=== PATIENT | female | born 1975 | race Caucasian/White ===

== ENCOUNTER → 2017-10-26 11:58 | Outpatient (CLI) | payer BC, SELFPAY ==
[2017-10-26 12:03] LABS: Mucous, Urine 0 SEEN /hpf (<or=2+); Red Blood Cells-Urine 0 SEEN /hpf (0-5)
[2017-10-26 14:07] LABS: Absolute Lymphocyte Count 2.14 X10^3/ul (0.83-4.51); Absolute Neutrophil Count 3.7 X10^3/uL (2.0-7.7); Basophil# 0.01 X10^3/uL; Basophil% 0.2 % (0-1); Eosinophils% 1.5 % (0-5); Hematocrit 41.5 % (37-47); Hemoglobin 14.3 g/dl (12.0-15.0); Lymphocyte # 2.14 X10^3/ul (4.0); Lymphocyte % 33.1 % (19-41); Mean Corp Hgb Conc 34.5 g/gl (32-36); Mean Corpuscular Hgb 30.8 pg (27.0-32.0); Mean Corpuscular Volume 89.4 fL (81-99); Mean Platelet Vol. 13.3 fl (6.2-12.0); Monocyte# 0.47 X10^3/uL; Monocyte% 7.3 % (0-10); Neutrophil # 3.73 X10^3/uL (2.7-7.7); Neutrophil % 57.7 % (47-70); Platelet Count 176 K/mm3 (150-450); RBC Distribution Width CV 12.3 % (11.6-14.6); RBC Distribution Width SD 40.1 fl (35.1-43.9); Red Blood Count 4.64 M/mm3 (4.2-5.4); White Blood Count 6.5 K/mm3 (4.4-11.0)
[2017-10-26 14:18] LABS: POSITIVE COUNT NO; POSITIVE DIFFERENTIAL NO; POSITIVE MORPHOLOGY NO
[2017-10-26 14:23] LABS: Hemoglobin A1c 8.1 % (4.2-6.3)
[2017-10-26 14:29] LABS: Color, Urine Yellow (Yellow); Glucose, Dipstick 100 mg/dl (Normal); Ketone-Dipstick 15 mg/dl (Negative); Leukocyte Esterase-Dipstick 25 /ul (Negative); Nitrite-Dipstick Negative (Negative); Occult Blood-Urine Negative /ul (Negative); Protein-Dipstick 30 mg/dl (Negative); Urine Bilirubin Dipstick Negative (Negative); Urine Clarity Sl. Cloudy (Clear); Urine Urobilinogen Normal (Normal)
[2017-10-26 14:33] LABS: Vitamin D,25 Hydroxy 38.8 ng/mL (29.95-100.01)
[2017-10-26 14:40] LABS: AST(SGOT) 45 U/L (15-37); Alanine Aminotransfer ALT/SGPT 44 U/L (13-56); Albumin, Serum 3.9 g/dL (3.2-5.0); Alkaline Phosphatase 56 U/L (45-117); Anion Gap 9 (5-15); BUN 13 mg/dL (7-18); BUN/Creat Ratio 15.3 RATIO (10-20); Calcium,Total 8.8 mg/dL (8.5-10.1); Chloride 103 mmol/L (98-107); Cholesterol 177 mg/dL (200); Creatinine, Serum 0.85 mg/dL (0.55-1.02); EST Glomerular Filtration Rate 78 mL/min (>60); Est Glom Filt Rate - Afr Amer 95 mL/min (>60); Glucose 150 mg/dL (74-106); High Density Lipoprotein 33 mg/dL; Potassium 4.1 mmol/L (3.5-5.1); Protein, Total 7.9 g/dL (6.4-8.2); Sodium Level 136 mmol/L (136-145); Thyroid Stim Hormone (TSH) 1.03 uIU/mL (0.358-3.74); Triglycerides 195 mg/dL; Very Low Density Lipoprotein 39 mg/dL (5-40)
[2017-10-26 14:44] LABS: Bacteria 1+ /hpf (None Seen); Squamous Epithelial Cells - UA 0-5 SEEN /hpf (5-10); White Blood Cells 0-5 SEEN /hpf (0-5)
[2017-10-26 15:01] LABS: Microalbumin:Creatinine Ratio 53.2 mg/g CRE (<30 mg/g CRE)
== END ==
LOC: MFPLAB 12:00
PROVIDERS: Family Provider Family Medicine; PCP Family Medicine; Visit Provider Family Medicine
DX: E11.9 Type 2 diabetes mellitus without complications (principal); E55.9 Vitamin D deficiency, unspecified; E66.01 Morbid (severe) obesity due to excess calories
CPT/HCPCS: 36415; 80053; 80061; 81001; 82043; 82306; 82570; 83036; 84443; 85025

== ENCOUNTER → 2018-02-28 15:47 | Outpatient (CLI) | payer BC, SELFPAY ==
[2018-02-28 17:46] LABS: Hemoglobin A1c 8.2 % (4.2-6.3)
[2018-02-28 17:47] LABS: Vitamin D,25 Hydroxy 35.1 ng/mL (29.95-100.01)
[2018-02-28 18:03] LABS: ALB/GLOB Ratio 0.9 RATIO (0.9-2.4); AST(SGOT) 39 U/L (15-37); Alanine Aminotransfer ALT/SGPT 42 U/L (13-56); Albumin, Serum 3.9 g/dL (3.2-5.0); Alkaline Phosphatase 70 U/L (45-117); Anion Gap 9 (5-15); BUN 14 mg/dL (7-18); BUN/Creat Ratio 18.9 RATIO (10-20); Calcium,Total 8.9 mg/dL (8.5-10.1); Chloride 102 mmol/L (98-107); Cholesterol 183 mg/dL (200); Creatinine, Serum 0.74 mg/dL (0.55-1.02); EST Glomerular Filtration Rate 91 mL/min (>60); Est Glom Filt Rate - Afr Amer 110 mL/min (>60); Globulin 4.2 g/dL (2.2-4.2); Glucose 185 mg/dL (74-106); High Density Lipoprotein 31 mg/dL; Potassium 3.9 mmol/L (3.5-5.1); Protein, Total 8.1 g/dL (6.4-8.2); Sodium Level 135 mmol/L (136-145); Triglycerides 209 mg/dL; Very Low Density Lipoprotein 42 mg/dL (5-40)
[2018-02-28 18:44] LABS: Microalbumin:Creatinine Ratio 56.1 mg/g CRE (<30 mg/g CRE)
== END ==
PROVIDERS: Family Provider Family Medicine; PCP Family Medicine; Visit Provider Family Medicine
DX: E55.9 Vitamin D deficiency, unspecified (principal); E11.9 Type 2 diabetes mellitus without complications
CPT/HCPCS: 36415; 80053; 80061; 82043; 82306; 82570; 83036

== ENCOUNTER → 2018-05-01 15:53 | Outpatient (CLI) | payer BC, SELFPAY ==
[2018-05-01 15:58] LABS: Mucous, Urine 0 SEEN /hpf (<or=2+); Red Blood Cells-Urine 0 SEEN /hpf (0-5); Squamous Epithelial Cells - UA 0 SEEN /hpf (5-10)
[2018-05-01 18:01] LABS: Absolute Lymphocyte Count 2.27 X10^3/ul (0.83-4.51); Absolute Neutrophil Count 4.5 X10^3/uL (2.0-7.7); Basophil# 0.02 X10^3/uL; Basophil% 0.3 % (0-1); Eosinophil# 0.13 X10^3/uL; Eosinophils% 1.7 % (0-5); Hematocrit 41.4 % (37-47); Hemoglobin 14.2 g/dl (12.0-15.0); Lymphocyte # 2.27 X10^3/ul (4.0); Lymphocyte % 30.2 % (19-41); Mean Corp Hgb Conc 34.3 g/gl (32-36); Mean Corpuscular Hgb 30.6 pg (27.0-32.0); Mean Corpuscular Volume 89.2 fL (81-99); Mean Platelet Vol. 12.7 fl (6.2-12.0); Monocyte# 0.61 X10^3/uL; Monocyte% 8.1 % (0-10); Neutrophil # 4.48 X10^3/uL (2.7-7.7); Neutrophil % 59.6 % (47-70); Platelet Count 198 K/mm3 (150-450); RBC Distribution Width CV 12.6 % (11.6-14.6); RBC Distribution Width SD 40.5 fl (35.1-43.9); Red Blood Count 4.64 M/mm3 (4.2-5.4); White Blood Count 7.5 K/mm3 (4.4-11.0)
[2018-05-01 18:13] LABS: Vitamin D,25 Hydroxy 28.9 ng/mL (29.95-100.01)
[2018-05-01 18:18] LABS: Color, Urine Yellow (Yellow); Glucose, Dipstick 1000 mg/dl (Normal); Ketone-Dipstick Negative (Negative); Leukocyte Esterase-Dipstick Negative /ul (Negative); Nitrite-Dipstick Negative (Negative); Occult Blood-Urine Negative /ul (Negative); Protein-Dipstick 15 mg/dl (Negative); Specific Gravity, Urine 1.025 (1.002-1.030); Urine Bilirubin Dipstick Negative (Negative); Urine Clarity Clear (Clear); Urine Urobilinogen Normal (Normal)
[2018-05-01 18:18] LABS: POSITIVE COUNT NO; POSITIVE DIFFERENTIAL NO; POSITIVE MORPHOLOGY NO
[2018-05-01 18:19] LABS: ALB/GLOB Ratio 0.9 RATIO (0.9-2.4); AST(SGOT) 30 U/L (15-37); Alanine Aminotransfer ALT/SGPT 33 U/L (13-56); Albumin, Serum 3.7 g/dL (3.2-5.0); Alkaline Phosphatase 71 U/L (45-117); Anion Gap 9 (5-15); BUN 15 mg/dL (7-18); BUN/Creat Ratio 20.1 RATIO (10-20); Chloride 102 mmol/L (98-107); Cholesterol 129 mg/dL (200); Creatinine, Serum 0.74 mg/dL (0.55-1.02); EST Glomerular Filtration Rate 91 mL/min (>60); Est Glom Filt Rate - Afr Amer 110 mL/min (>60); Globulin 4.1 g/dL (2.2-4.2); Glucose 182 mg/dL (74-106); High Density Lipoprotein 30 mg/dL; Potassium 4.2 mmol/L (3.5-5.1); Protein, Total 7.8 g/dL (6.4-8.2); Sodium Level 136 mmol/L (136-145); Thyroid Stim Hormone (TSH) 1.19 uIU/mL (0.358-3.74); Triglycerides 192 mg/dL; Very Low Density Lipoprotein 38 mg/dL (5-40)
[2018-05-01 18:23] LABS: Hemoglobin A1c 9.9 % (4.2-6.3)
[2018-05-01 18:29] LABS: Microalbumin:Creatinine Ratio 109.8 mg/g CRE (<30 mg/g CRE)
[2018-05-01 18:54] LABS: Bacteria RARE /hpf (None Seen); White Blood Cells 0-5 SEEN /hpf (0-5)
--- OUTSIDE RECORDS SUMMARY | 2018-08-03 08:42 | XMS RPT_ITS ---
:1975 External Reference #:[id number] Author Organization [facility] Care Team Providers Name Role Phone Farrukh Prajapati Attending Unavailable Farrukh Prajapati Primary Care Unavailable Farrukh Prajapati Attending Unavailable Farrukh Prajapati Referring Unavailable Farrukh Prajapati Primary Care Unavailable Farrukh Prajapati Attending Unavailable Farrukh Prajapati Referring Unavailable Farrukh Prajapati Primary Care Unavailable Farrukh Prajapati Attending Unavailable Farrukh Prajapati Primary Care Unavailable Farrukh Prajapati Attending Unavailable Farrukh Prajapati Primary Care Unavailable Farrukh Prajapati Attending Unavailable Farrukh Prajapati Primary Care Unavailable PROBLEMS PROBLEMS DATE TYPE CONDITION / CODE ATTENDING STATUS SOURCE 05/31/2018 Unknown M25.532 - Pain in Farrukh Prajapati left wrist / [facility] M25.532(ICD-10) Hospital Repository 03/03/2018 Unknown E55.9 - Vitamin D Farrukh Prajapati Active [place] deficiency, [facility] unspecified / Hospital E55.9(ICD-10) Repository PROCEDURES PROCEDURES No Procedure Records FoundRESULTS RESULTS WRIST MIN 3 VIEWS Observed: 05/31/2018 Status: F Source: [place] 9:43 AM [facility] REPOSITORY [facility] Imaging Services [address] [place] [address] Wrist min 3 Views MR#: [id number] Acct: [id number] Name: RAVI RAMIREZ Zach Rep #: [id number] : 1975 F 43 From: Sarthak Forman DO PCP: Farrukh Prajapati MD Status: REG CLI Study: Wrist min 3 Views Date of Exam: 05/31/18 Exam# [id number] Ordering Dr: Farrukh Prajapati MD STUDY: X-RAY - LEFT WRIST REASON FOR EXAM: Female, 43 years old. Pain for 1.5 months after a beam fell on the arm. TECHNIQUE: 4 view(s) of the wrist were obtained. COMPARISON: None. FINDINGS: Normal visualized distal radius and ulna. Normal radiocarpal articulation. Normal distal radioulnar articulation. Normal carpal bones. Normal carpal articulations. Normal carpometacarpal articulation of the thumb. Normal second through fifth carpometacarpal articulations. Normal visualized metacarpal bones. The soft tissue structures are unremarkable. RAD/Wrist min 3 Views IMPRESSION: Normal x-ray examination of the wrist. Electronically Signed: Sarthak Forman DO at 23:24 EST Tel [phone], Service support , CC: Farrukh Prajapati MD Insurance Claims Assistant: Signed HEMOGLOBIN A1C Collected: 05/26/2018 Status: F Source: [place] 11:00 AM [facility] [place] TYPE CODE TESTS RESULT OUT OF RANGE REFERENCE UNITS LAB L501.9985 4.2-6.3 % High HGB A1C 9.8 Performed By: #### L501.9985 #### [facility] [address] [place], [place], [id number] COMPREHENSIVE METABOLIC Collected: 05/26/2018 Status: F [facility] AM [facility] TYPE CODE TESTS RESULT OUT OF RANGE REFERENCE UNITS LAB L501.0100 74-106 mg/dL High GLU 173 Result Comment: Fasting Glucose result greater than or equal to 126 mg/dL suggests DIABETES MELLITUS per A.D.A. criteria. Please note revised GLUCOSE reference range effective 2017. LAB L501.1000 7-18 mg/dL Normal BUN 11 LAB L501.1100 0.55-1.02 mg/dL Normal CREAT,SERUM 0.62 Result Comment: The validity of the calculated GFR AND GFRAA in patients over 70 years has not been determined. Clinical correlation is essential. LAB L501.1110 >60 mL/min Normal EST GFR 112 Result Comment: Non- GFR Calc LAB L501.1115 >60 mL/min Normal EST GFR - AA 136 Result Comment: GFR Calc LAB L501.1300 10-20 RATIO Normal BUN/CRE 17.7 LAB L501.1500 6.4-8.2 g/dL T Normal PROT 7.6 LAB L501.1800 3.2-5.0 g/dL Normal ALB 4.0 LAB L501.1950 2.2-4.2 g/dL Normal GLOB 3.6 LAB L501.2000 0.9-2.4 RATIO Normal A/G 1.1 LAB L501.2200 8.5-10.1 mg/dL CA Normal 8.8 LAB L501.4100 15-37 U/L High AST 44 LAB L501.4305 45-117 U/L Normal ALK P 68 LAB L501.4405 13-56 U/L Normal ALT 42 LAB L501.4600 0.20-1.00 mg/dL T Normal BILI 0.50 LAB L501.5300 136-145 mmol/L NA Normal 136 LAB L501.5600 3.5-5.1 mmol/L K Normal 4.3 LAB L501.5900 98-107 mmol/L CL Normal 104 LAB L501.6100 21.0-32.0 mmol/L Normal CO2 23.0 LAB L501.6200 5-15 Normal GAP 9 Performed By: #### L500.4050, L500.4100 #### [facility] [address] [place], [place], [id number] LIPID PROFILE Collected: 05/26/2018 Status: F Source: [place] 11:00 AM [facility] [place] TYPE CODE TESTS RESULT OUT OF RANGE REFERENCE UNITS LAB L501.4900 200 mg/dL Normal CHOL 150 Result Comment: <200 mg/dL Desirable 200-240 mg/dL Borderline >240 mg/dL High Risk LAB L501.5000 mg/dL Normal TRIG 159 Result Comment: The drugs N-Acetylcysteine and Metamizole may falsely depress this assay. Serum Triglycerides Reference Interval Normal <150 mg/dL Borderline high 150 - 199 mg/dL High 200 - 499 mg/dL Very High > or = 500 mg/dL LAB L501.6400 mg/dL Low HDL 34 Result Comment: The drugs N-Acetylcysteine and Metamizole may falsely depress this assay. Reference Range HDL <40 mg/dL Low HDL Cholesterol HDL >or= 60 mg/dL High HDL Cholesterol LAB L501.6500 0-130 mg/dL Normal LDL 84 LAB L501.6600 5-40 mg/dL Normal VLDL 32 Performed By: #### L500.4050, L500.4100 #### [facility] [address] [place], [place], [id number] MICROALB:CREAT Collected: 05/26/2018 Status: F Source: [place] RATIO,RANDOM UR 11:00 AM [facility] [place] TYPE CODE TESTS RESULT OUT OF RANGE REFERENCE UNITS LAB L501.1200 NO RANGE EST. mg/dL Normal UR CREAT 102.00 LAB L502.0500 NO RANGE EST. mg/L Normal 76.5 MICROALBUMIN ,UR LAB L502.0600 <30 mg/g CRE mg/g CRE High 75.0 MALB:CREAT Performed By: #### L502.0250 #### [facility] [address] [place], [address] URINALYSIS, COMPLETE Collected: 05/01/2018 Status: F Source: [place] 3:56 PM [facility] [place] Order Comment: How was Urine Obtained? CLEAN CATCH TYPE CODE TESTS RESULT OUT OF RANGE REFERENCE UNITS LAB L400.3000 Yellow COLOR Normal Yellow LAB L400.3050 Clear Normal CLARITY Clear LAB L400.3200 Normal mg/dl High GLUCOSE, UR 1000 LAB L400.3300 Negative mg/dL Normal BILIRUBIN URINE Negative LAB L400.3400 Negative mg/dl Normal KETONE UR Negative LAB L400.3465 1.002-1.030 Normal SP.GR. DIPSTX 1.025 LAB L400.3550 5.0 - 8.0 pH UR Normal 6.0 LAB L400.3600 Negative mg/dl High PROT 15 DIPSTX LAB L400.3700 Normal mg/dl Normal UROBILI Normal LAB L400.3750 Negative Normal NITRITE UR Negative LAB L400.3780 Negative /ul Normal OCCULT BLOOD-UR Negative LAB L400.3800 Negative /ul LEUK Normal ESTERASE Negative LAB L400.4050 0-5 /hpf WBC Normal 0-5 SEEN LAB L400.4100 0-5 /hpf 0 Normal RBC-UA SEEN LAB L400.4150 5-10 /hpf SQUAM 0 Normal EPI SEEN LAB L400.4300 None Seen /hpf Normal BACTERIA RARE LAB L400.4350 <or=2+ /hpf 0 Normal MUCUS, URINE SEEN Performed By: #### L400.0001 #### [facility] [address] [place], [address] VITAMIN D,25 HYDROXY Collected: 05/01/2018 Status: F Source: [place] 3:55 PM [facility] Order Comment: Order Date: 10/27/17 Order Info: [id number] - VITD25 TYPE CODE TESTS RESULT OUT OF REFERENCE UNITS RANGE LAB L506.1000 29.95-100.01 ng/mL Low Vitamin D 28.9 25-OH Result Comment: Vitamin D 25(OH) Status Range Deficiency <20 ng/mL (50nmol/L) Insuffciency 20 - 30 ng/mL (50 - 75 nmol/L) Sufficiency 30 - 100 ng/mL (75 - 250 nmol/L) Toxicity >100 ng/mL (>250 nmol/L) Performed By: #### L506.1000, L100.0100, L500.4050, L500.4100, L501.9520, L501.9985, L502.0250 #### [facility] [address] [place], [place], [address] CBC W/DIFF, AUTOMATED Collected: 05/01/2018 Status: F Source: [place] 3:55 PM [facility] Order Comment: Order Date: 10/27/17 Order Info: [id number] - CBCD TYPE CODE TESTS RESULT OUT OF RANGE REFERENCE UNITS LAB L100.1000 4.4-11.0 K/mm3 Normal WBC 7.5 LAB L100.1200 4.2-5.4 M/mm3 Normal RBC 4.64 LAB L100.1300 12.0-15.0 g/dl Normal HGB 14.2 LAB L100.1400 37-47 % Normal HCT 41.4 LAB L100.1500 81-99 fL Normal MCV 89.2 LAB L100.1600 27.0-32.0 pg Normal MCH 30.6 LAB L100.1700 32-36 g/gl Normal MCHC 34.3 LAB L100.1810 11.6-14.6 % Normal RDW CV 12.6 LAB L100.1820 35.1-43.9 fl Normal RDW SD 40.5 LAB L100.1900 150-450 K/mm3 Normal PLT 198 LAB L100.2000 6.2-12.0 fl High MPV 12.7 LAB L100.2100 47-70 % Normal NEUT% 59.6 LAB L100.2200 19-41 % Normal LY% 30.2 LAB L100.2300 0-10 % Normal MONO% 8.1 LAB L100.2400 0-5 % Normal EO% 1.7 LAB L100.2500 0-1 % Normal BASO% 0.3 LAB L100.2550 0.0-0.9 % Normal IM GRAN % 0.100 Result Comment: IG% - Immature Granulocytes (promyelocytes, myelocytes and metamyelocytes) > 1% indicates that a LEFT SHIFT is Present. LAB L100.2620 2.0-7.7 X10 3/uL Normal Absolute Neut 4.5 LAB L100.2720 0.83-4.51 X10 3/ul Normal Absolute Lymph 2.27 Performed By: #### L506.1000, L100.0100, L500.4050, L500.4100, L501.9520, L501.9985, L502.0250 #### [facility] [address] [place], [address] COMPREHENSIVE METABOLIC Collected: 05/01/2018 Status: F Source: [facility] 3:55 PM [facility] Order Comment: Order Date: 10/27/17 Order Info: [id number] - CMP Order Info: [id number] - LIPID Order Info: [id number] - TSH TYPE CODE TESTS RESULT OUT OF RANGE REFERENCE UNITS LAB L501.0100 74-106 mg/dL High GLU 182 Result Comment: Fasting Glucose result greater than or equal to 126 mg/dL suggests DIABETES MELLITUS per A.D.A. criteria. Please note revised GLUCOSE reference range effective 2017. LAB L501.1000 7-18 mg/dL Normal BUN 15 LAB L501.1100 0.55-1.02 mg/dL Normal CREAT,SERUM 0.74 Result Comment: The validity of the calculated GFR AND GFRAA in patients over 70 years has not been determined. Clinical correlation is essential. LAB L501.1110 >60 mL/min Normal EST GFR 91 Result Comment: Non- GFR Calc LAB L501.1115 >60 mL/min Normal EST GFR - AA 110 Result Comment: GFR Calc LAB L501.1300 10-20 RATIO High BUN/CRE 20.1 LAB L501.1500 6.4-8.2 g/dL T Normal PROT 7.8 LAB L501.1800 3.2-5.0 g/dL Normal ALB 3.7 LAB L501.1950 2.2-4.2 g/dL Normal GLOB 4.1 LAB L501.2000 0.9-2.4 RATIO Normal A/G 0.9 LAB L501.2200 8.5-10.1 mg/dL CA Normal 9.0 LAB L501.4100 15-37 U/L Normal AST 30 LAB L501.4305 45-117 U/L Normal ALK P 71 LAB L501.4405 13-56 U/L Normal ALT 33 LAB L501.4600 0.20-1.00 mg/dL T Normal BILI 0.40 LAB L501.5300 136-145 mmol/L NA Normal 136 LAB L501.5600 3.5-5.1 mmol/L K Normal 4.2 LAB L501.5900 98-107 mmol/L CL Normal 102 LAB L501.6100 21.0-32.0 mmol/L Normal CO2 25.0 LAB L501.6200 5-15 Normal GAP 9 Performed By: #### L506.1000, L100.0100, L500.4050, L500.4100, L501.9520, L501.9985, L502.0250 #### [facility] [address] [place], [address] LIPID PROFILE Collected: 05/01/2018 Status: F Source: [place] 3:55 PM [facility] Order Comment: Order Date: 10/27/17 Order Info: [id number] - CMP Order Info: [id number] - LIPID Order Info: [id number] - TSH TYPE CODE TESTS RESULT OUT OF RANGE REFERENCE UNITS LAB L501.4900 200 mg/dL Normal CHOL 129 Result Comment: <200 mg/dL Desirable 200-240 mg/dL Borderline >240 mg/dL High Risk LAB L501.5000 mg/dL Normal TRIG 192 Result Comment: The drugs N-Acetylcysteine and Metamizole may falsely depress this assay. Serum Triglycerides Reference Interval Normal <150 mg/dL Borderline high 150 - 199 mg/dL High 200 - 499 mg/dL Very High > or = 500 mg/dL LAB L501.6400 mg/dL Low HDL 30 Result Comment: The drugs N-Acetylcysteine and Metamizole may falsely depress this assay. Reference Range HDL <40 mg/dL Low HDL Cholesterol HDL >or= 60 mg/dL High HDL Cholesterol LAB L501.6500 0-130 mg/dL Normal LDL 61 LAB L501.6600 5-40 mg/dL Normal VLDL 38 Performed By: #### L506.1000, L100.0100, L500.4050, L500.4100, L501.9520, L501.9985, L502.0250 #### [facility] [address] [place], [place], [id number] THYROID STIM HORMONE Collected: 05/01/2018 Status: F Source: [place] (TSH) 3:55 PM [facility] Order Comment: Order Date: 10/27/17 Order Info: [id number] - CMP Order Info: [id number] - LIPID Order Info: [id number] - TSH TYPE CODE TESTS RESULT OUT OF RANGE REFERENCE UNITS LAB L501.9520 0.358-3.74 uIU/mL Normal TSH 1.19 Performed By: #### L506.1000, L100.0100, L500.4050, L500.4100, L501.9520, L501.9985, L502.0250 #### [facility] [address] [place], [address] HEMOGLOBIN A1C Collected: 05/01/2018 Status: F Source: [place] 3:55 PM [facility] Order Comment: Order Date: 10/27/17 Order Info: [id number] - A1C TYPE CODE TESTS RESULT OUT OF RANGE REFERENCE UNITS LAB L501.9985 4.2-6.3 % High HGB A1C 9.9 Performed By: #### L506.1000, L100.0100, L500.4050, L500.4100, L501.9520, L501.9985, L502.0250 #### [facility] [address] [place], [place], [id number] MICROALB:CREAT Collected: 05/01/2018 Status: F Source: [place] RATIO,RANDOM UR 3:55 PM [facility] Order Comment: Order Date: 10/27/17 Order Info: [id number] - MIACRE TYPE CODE TESTS RESULT OUT OF RANGE REFERENCE UNITS LAB L501.1200 NO RANGE EST. mg/dL Normal UR CREAT 102.00 LAB L502.0500 NO RANGE EST. mg/L Normal 112.0 MICROALBUMIN ,UR LAB L502.0600 <30 mg/g CRE mg/g CRE High 109.8 MALB:CREAT Performed By: #### L506.1000, L100.0100, L500.4050, L500.4100, L501.9520, L501.9985, L502.0250 #### [facility] [address] [place], [address] HEMOGLOBIN A1C Collected: 02/28/2018 Status: F Source: [place] 3:48 PM [facility] TYPE CODE TESTS RESULT OUT OF RANGE REFERENCE UNITS LAB L501.9985 4.2-6.3 % High HGB A1C 8.2 Performed By: #### L501.9985 #### [facility] [address] [place], [address] VITAMIN D,25 HYDROXY Collected: 02/28/2018 Status: F Source: [place] 3:48 PM [facility] TYPE CODE TESTS RESULT OUT OF RANGE REFERENCE UNITS LAB L506.1000 29.95-100.01 ng/mL Normal Vitamin D 35.1 25-OH Result Comment: Vitamin D 25(OH) Status Range Deficiency <20 ng/mL (50nmol/L) Insuffciency 20 - 30 ng/mL (50 - 75 nmol/L) Sufficiency 30 - 100 ng/mL (75 - 250 nmol/L) Toxicity >100 ng/mL (>250 nmol/L) Performed By: #### L506.1000 #### [facility] [address] [place], [address] COMPREHENSIVE METABOLIC Collected: 02/28/2018 Status: F Source: [place] [facility] 3:48 PM [facility] [place] TYPE CODE TESTS RESULT OUT OF RANGE REFERENCE UNITS LAB L501.0100 74-106 mg/dL High GLU 185 Result Comment: Fasting Glucose result greater than or equal to 126 mg/dL suggests DIABETES MELLITUS per A.D.A. criteria. Please note revised GLUCOSE reference range effective 2017. LAB L501.1000 7-18 mg/dL Normal BUN 14 LAB L501.1100 0.55-1.02 mg/dL Normal CREAT,SERUM 0.74 Result Comment: The validity of the calculated GFR AND GFRAA in patients over 70 years has not been determined. Clinical correlation is essential. LAB L501.1110 >60 mL/min Normal EST GFR 91 Result Comment: Non- GFR Calc LAB L501.1115 >60 mL/min Normal EST GFR - AA 110 Result Comment: GFR Calc LAB L501.1300 10-20 RATIO Normal BUN/CRE 18.9 LAB L501.1500 6.4-8.2 g/dL T Normal PROT 8.1 LAB L501.1800 3.2-5.0 g/dL Normal ALB 3.9 LAB L501.1950 2.2-4.2 g/dL Normal GLOB 4.2 LAB L501.2000 0.9-2.4 RATIO Normal A/G 0.9 LAB L501.2200 8.5-10.1 mg/dL CA Normal 8.9 LAB L501.4100 15-37 U/L High AST 39 LAB L501.4305 45-117 U/L Normal ALK P 70 LAB L501.4405 13-56 U/L Normal ALT 42 LAB L501.4600 0.20-1.00 mg/dL T Normal BILI 0.30 LAB L501.5300 136-145 mmol/L Low NA 135 LAB L501.5600 3.5-5.1 mmol/L K Normal 3.9 LAB L501.5900 98-107 mmol/L CL Normal 102 LAB L501.6100 21.0-32.0 mmol/L Normal CO2 24.0 LAB L501.6200 5-15 Normal GAP 9 Performed By: #### L500.4050, L500.4100 #### [facility] [address] [place], [place], [id number] LIPID PROFILE Collected: 02/28/2018 Status: F Source: [place] 3:48 PM [facility] TYPE CODE TESTS RESULT OUT OF RANGE REFERENCE UNITS LAB L501.4900 200 mg/dL Normal CHOL 183 Result Comment: <200 mg/dL Desirable 200-240 mg/dL Borderline >240 mg/dL High Risk LAB L501.5000 mg/dL High TRIG 209 Result Comment: The drugs N-Acetylcysteine and Metamizole may falsely depress this assay. Serum Triglycerides Reference Interval Normal <150 mg/dL Borderline high 150 - 199 mg/dL High 200 - 499 mg/dL Very High > or = 500 mg/dL LAB L501.6400 mg/dL Low HDL 31 Result Comment: The drugs N-Acetylcysteine and Metamizole may falsely depress this assay. Reference Range HDL <40 mg/dL Low HDL Cholesterol HDL >or= 60 mg/dL High HDL Cholesterol LAB L501.6500 0-130 mg/dL Normal LDL 110 LAB L501.6600 5-40 mg/dL High VLDL 42 Performed By: #### L500.4050, L500.4100 #### [facility] [address] [facility] [place], [address] MICROALB:CREAT Collected: 02/28/2018 Status: F Source: [place] RATIO,RANDOM UR 3:48 PM [facility] TYPE CODE TESTS RESULT OUT OF RANGE REFERENCE UNITS LAB L501.1200 NO RANGE EST. mg/dL Normal UR CREAT 221.00 LAB L502.0500 NO RANGE EST. mg/L Normal 124.0 MICROALBUMIN ,UR LAB L502.0600 <30 mg/g CRE mg/g CRE High 56.1 MALB:CREAT Performed By: #### L502.0250 #### [facility] [address] [place], [address] CBC W/DIFF, AUTOMATED Collected: 10/26/2017 Status: F Source: [place] 12:01 PM [facility] [place] TYPE CODE TESTS RESULT OUT OF RANGE REFERENCE UNITS LAB L100.1000 4.4-11.0 K/mm3 Normal WBC 6.5 LAB L100.1200 4.2-5.4 M/mm3 Normal RBC 4.64 LAB L100.1300 12.0-15.0 g/dl Normal HGB 14.3 LAB L100.1400 37-47 % Normal HCT 41.5 LAB L100.1500 81-99 fL Normal MCV 89.4 LAB L100.1600 27.0-32.0 pg Normal MCH 30.8 LAB L100.1700 32-36 g/gl Normal MCHC 34.5 LAB L100.1810 11.6-14.6 % Normal RDW CV 12.3 LAB L100.1820 35.1-43.9 fl Normal RDW SD 40.1 LAB L100.1900 150-450 K/mm3 Normal PLT 176 LAB L100.2000 6.2-12.0 fl High MPV 13.3 LAB L100.2100 47-70 % Normal NEUT% 57.7 LAB L100.2200 19-41 % Normal LY% 33.1 LAB L100.2300 0-10 % Normal MONO% 7.3 LAB L100.2400 0-5 % Normal EO% 1.5 LAB L100.2500 0-1 % Normal BASO% 0.2 LAB L100.2550 0.0-0.9 % Normal IM GRAN % 0.200 Result Comment: IG% - Immature Granulocytes (promyelocytes, myelocytes and metamyelocytes) > 1% indicates that a LEFT SHIFT is Present. LAB L100.2620 2.0-7.7 X10 3/uL Normal Absolute Neut 3.7 LAB L100.2720 0.83-4.51 X10 3/ul Normal Absolute Lymph 2.14 Performed By: #### L100.0100 #### [facility] [address] [place], [place], [address] HEMOGLOBIN A1C Collected: 10/26/2017 Status: F Source: [place] 12:01 [facility] REPOSITORY TYPE CODE TESTS RESULT OUT OF RANGE REFERENCE UNITS LAB L501.9985 4.2-6.3 % High HGB A1C 8.1 Performed By: #### L501.9985 #### [facility] [address] [place], [address] URINALYSIS, COMPLETE Collected: 10/26/2017 Status: F Source: [place] 12:01 PM [facility] Order Comment: How was Urine Obtained? CLEAN CATCH TYPE CODE TESTS RESULT OUT OF RANGE REFERENCE UNITS LAB L400.3000 Yellow COLOR Normal Yellow LAB L400.3050 Clear Normal CLARITY Sl. Cloudy LAB L400.3200 Normal mg/dl High GLUCOSE, UR 100 LAB L400.3300 Negative mg/dL Normal BILIRUBIN URINE Negative LAB L400.3400 Negative mg/dl High 15 KETONE UR LAB L400.3465 1.002-1.030 Normal SP.GR. DIPSTX 1.030 LAB L400.3550 5.0 - 8.0 pH UR Normal 5.0 LAB L400.3600 Negative mg/dl High PROT 30 DIPSTX LAB L400.3700 Normal mg/dl Normal UROBILI Normal LAB L400.3750 Negative Normal NITRITE UR Negative LAB L400.3780 Negative /ul Normal OCCULT BLOOD-UR Negative LAB L400.3800 Negative /ul High LEUK 25 ESTERASE LAB L400.4050 0-5 /hpf WBC Normal 0-5 SEEN LAB L400.4100 0-5 /hpf 0 Normal RBC-UA SEEN LAB L400.4150 5-10 /hpf SQUAM Normal EPI 0-5 SEEN LAB L400.4300 None Seen /hpf 1+ Normal BACTERIA LAB L400.4350 <or=2+ /hpf 0 Normal MUCUS, URINE SEEN Performed By: #### L400.0001 #### [facility] [address] [facility] [place], [address] VITAMIN D,25 HYDROXY Collected: 10/26/2017 Status: F Source: [place] 12:01 [facility] REPOSITORY TYPE CODE TESTS RESULT OUT OF RANGE REFERENCE UNITS LAB L506.1000 29.95-100.01 ng/mL Normal Vitamin D 38.8 25-OH Result Comment: Vitamin D 25(OH) Status Range Deficiency <20 ng/mL (50nmol/L) Insuffciency 20 - 30 ng/mL (50 - 75 nmol/L) Sufficiency 30 - 100 ng/mL (75 - 250 nmol/L) Toxicity >100 ng/mL (>250 nmol/L) Performed By: #### L506.1000 #### [facility] [address] [place], [address] COMPREHENSIVE METABOLIC Collected: 10/26/2017 Status: F Source: [facility] 12:01 PM [facility] TYPE CODE TESTS RESULT OUT OF RANGE REFERENCE UNITS LAB L501.0100 74-106 mg/dL High GLU 150 Result Comment: Fasting Glucose result greater than or equal to 126 mg/dL suggests DIABETES MELLITUS per A.D.A. criteria. Please note revised GLUCOSE reference range effective 2017. LAB L501.1000 7-18 mg/dL Normal BUN 13 LAB L501.1100 0.55-1.02 mg/dL Normal CREAT,SERUM 0.85 Result Comment: The validity of the calculated GFR AND GFRAA in patients over 70 years has not been determined. Clinical correlation is essential. LAB L501.1110 >60 mL/min Normal EST GFR 78 Result Comment: Non- GFR Calc LAB L501.1115 >60 mL/min Normal EST GFR - AA 95 Result Comment: GFR Calc LAB L501.1300 10-20 RATIO Normal BUN/CRE 15.3 LAB L501.1500 6.4-8.2 g/dL T Normal PROT 7.9 LAB L501.1800 3.2-5.0 g/dL Normal ALB 3.9 LAB L501.1950 2.2-4.2 g/dL Normal GLOB 4.0 LAB L501.2000 0.9-2.4 RATIO Normal A/G 1.0 LAB L501.2200 8.5-10.1 mg/dL CA Normal 8.8 LAB L501.4100 15-37 U/L High AST 45 LAB L501.4305 45-117 U/L Normal ALK P 56 LAB L501.4405 13-56 U/L Normal ALT 44 LAB L501.4600 0.20-1.00 mg/dL T Normal BILI 0.50 LAB L501.5300 136-145 mmol/L NA Normal 136 LAB L501.5600 3.5-5.1 mmol/L K Normal 4.1 LAB L501.5900 98-107 mmol/L CL Normal 103 LAB L501.6100 21.0-32.0 mmol/L Normal CO2 24.0 LAB L501.6200 5-15 Normal GAP 9 Performed By: #### L500.4050, L500.4100, L501.9520 #### [facility] [address] [place], [place], [id number] LIPID PROFILE Collected: 10/26/2017 Status: F Source: [place] 12:01 PM [facility] TYPE CODE TESTS RESULT OUT OF RANGE REFERENCE UNITS LAB L501.4900 200 mg/dL Normal CHOL 177 Result Comment: <200 mg/dL Desirable 200-240 mg/dL Borderline >240 mg/dL High Risk LAB L501.5000 mg/dL Normal TRIG 195 Result Comment: The drugs N-Acetylcysteine and Metamizole may falsely depress this assay. Serum Triglycerides Reference Interval Normal <150 mg/dL Borderline high 150 - 199 mg/dL High 200 - 499 mg/dL Very High > or = 500 mg/dL LAB L501.6400 mg/dL Low HDL 33 Result Comment: The drugs N-Acetylcysteine and Metamizole may falsely depress this assay. Reference Range HDL <40 mg/dL Low HDL Cholesterol HDL >or= 60 mg/dL High HDL Cholesterol LAB L501.6500 0-130 mg/dL Normal LDL 105 LAB L501.6600 5-40 mg/dL Normal VLDL 39 Performed By: #### L500.4050, L500.4100, L501.9520 #### [facility] [address], [place], [address] THYROID STIM HORMONE Collected: 10/26/2017 Status: F Source: JAYLON (TSH) 12:01 [facility] REPOSITORY TYPE CODE TESTS RESULT OUT OF RANGE REFERENCE UNITS LAB L501.9520 0.358-3.74 uIU/mL Normal TSH 1.03 Performed By: #### L500.4050, L500.4100, L501.9520 #### [facility] [address], [place], [id number] MICROALB:CREAT Collected: 10/26/2017 Status: F Source: JAYLON RATIO,RANDOM UR 12:01 PM [facility] [place] CODE TESTS RESULT OUT OF RANGE REFERENCE UNITS LAB L501.1200 NO RANGE EST. mg/dL Normal UR CREAT 278.00 LAB L502.0500 NO RANGE EST. mg/L Normal 148.0 MICROALBUMIN ,UR LAB L502.0600 <30 mg/g CRE mg/g CRE High 53.2 MALB:CREAT Performed By: #### L502.0250 #### [facility] [address] [place], [address] ALLERGIES ALLERGIES DATE TYPE / CODE NAME / CODE REACTION SEVERITY SOURCE 04/16/2016 Drug No Known Unknown [facility] Allergy/4160 Allergies/F00 Hospital 61763(SNOMED 4281312(RXNOR Repository CT) M) ENCOUNTERS ENCOUNTERS ADMIT/DISCHARGE ACCOUNT ADMITTING ENCOUNTER LOCATION SOURCE NUMBER CLASS 06/07/2018 [id number] Ambulatory [place] 4 [facility] ing:NM Repository 05/31/2018 [id number] Ambulatory [place] 4 [facility] ing:MTRAD Repository 05/26/2018 [id number] Ambulatory [place] 4 [facility] ing:MFPLAB Repository 05/01/2018 [id number] Ambulatory [place] 4 [facility] ing:MFPLAB Repository 02/28/2018 [id number] Ambulatory [place] 5 [facility] ing:MFPLAB Repository 10/26/2017 [id number] Ambulatory [place] 1 [facility] ing:MFPLAB Repository PAYERS PAYERS ENCOUNTER GUARANTOR PAYER SUBSCRIBER SOURCE 06/07/2018 CARRY J Primary CARRY J [place] [id number] Insurance:ANTHEMPolic FENSTERMAKERDOB: [facility] [place] Number: [id number] [id number] Repository 13579Tdf: (330) Date:2638-95-64LD [phone] () [address] [place] [address]07[address]OQ: 06/07/2018 Secondary NOT GIVENUNK [place] Insurance:SELF PAY [facility] Number: Effective Repository Date:2018-06-01 05/31/2018 CARRY J Primary CARRY J [place] [id number] Insurance:ANTHEMPolic FENSTERMAKERDOB: [facility] [place] Number: [id number], [place] [id number] Repository 890[address]Hes: (330) Date:4933-62-27WZ [phone] () [address] [place] [address] 56062PZ: 05/31/2018 Secondary NOT GIVENUNK [place] Insurance:SELF PAY [facility] Number: Effective Repository Date:2018-05-31 05/26/2018 CARRY J Primary CARRY J [place] [id number] Insurance:ANTHEMPolic FENSTERMAKERDOB: Community [place] y Number: [id number], [place] [id number] Repository 147[address]Gdq: (330) Date:4723-08-68MJ [phone] () [place] [address]ML: 05/26/2018 Secondary NOT GIVENUNK [place] Insurance:SELF PAY [facility] Number: Effective Repository Date:2018-05-26 05/01/2018 CARRY J Primary CARRY J [place] [id number] Insurance:ANTHEMPolic [facility]ENSTER[facility]KERDOB[facility] Number: [id number], [place] [id number] Repository 428[address]Hgz: (330) Date:7723-54-96ED [address] () [place] 59988QY: 05/01/2018 Secondary NOT GIVENUNK [place] Insurance:SELF PAY [facility] Number: Effective Repository Date:2018-05-01 02/28/2018 CARRY J Primary CARRY J [place] [id number] Insurance:ANTHEMPolic FENSTERMAKERDOB: [facility] [place] [place]: [id number] [id number] Repository 98[address]Ocz: (330) Date:3385-04-47XE [phone] () [id number] MURRIETA [address]94[address]WR: 02/28/2018 Secondary NOT GIVENUNK [place] Insurance:SELF PAY [facility] Number: Effective Repository Date:2018-02-28 10/26/2017 CARRY J Primary CARRY J [place] [id number] Insurance:ANTHEMPolic FENSTERMAKERDOB: [facility] y Number: [id number], [place] [id number] Repository [address]Vjm: (330) Date:8031-74-69IR [phone] () 211944CJIJGQUSETH MURRIETA 98786XO: 10/26/2017 Secondary NOT GIVENUNK [place] Insurance:[facility]LF PAY [facility] Number: Effective Repository Date:2017-10-26
== END ==
LOC: MFPLAB 15:53
PROVIDERS: Family Provider Family Medicine; PCP Family Medicine; Visit Provider Family Medicine
DX: E11.9 Type 2 diabetes mellitus without complications (principal); E55.9 Vitamin D deficiency, unspecified; E66.01 Morbid (severe) obesity due to excess calories
CPT/HCPCS: 80053; 80061; 81001; 82043; 82306; 82570; 83036; 84443; 85025

== ENCOUNTER → 2018-05-26 10:57 | Outpatient (CLI) | payer BC, SELFPAY ==
[2016-09-08 11:48] VITALS: BMI 41.8
[2018-05-26 12:40] LABS: Hemoglobin A1c 9.8 % (4.2-6.3)
[2018-05-26 12:43] LABS: ALB/GLOB Ratio 1.1 RATIO (0.9-2.4); AST(SGOT) 44 U/L (15-37); Alanine Aminotransfer ALT/SGPT 42 U/L (13-56); Alkaline Phosphatase 68 U/L (45-117); Anion Gap 9 (5-15); BUN 11 mg/dL (7-18); BUN/Creat Ratio 17.7 RATIO (10-20); Calcium,Total 8.8 mg/dL (8.5-10.1); Chloride 104 mmol/L (98-107); Cholesterol 150 mg/dL (200); Creatinine, Serum 0.62 mg/dL (0.55-1.02); EST Glomerular Filtration Rate 112 mL/min (>60); Est Glom Filt Rate - Afr Amer 136 mL/min (>60); Globulin 3.6 g/dL (2.2-4.2); Glucose 173 mg/dL (74-106); High Density Lipoprotein 34 mg/dL; Potassium 4.3 mmol/L (3.5-5.1); Protein, Total 7.6 g/dL (6.4-8.2); Sodium Level 136 mmol/L (136-145); Triglycerides 159 mg/dL; Very Low Density Lipoprotein 32 mg/dL (5-40)
[2018-05-26 12:57] LABS: Microalbumin,Random Urine 76.5 mg/L (NO RANGE EST.)
== END ==
LOC: MFPLAB 10:58
PROVIDERS: Family Provider Family Medicine; PCP Family Medicine; Visit Provider Family Medicine
DX: E11.9 Type 2 diabetes mellitus without complications (principal)
CPT/HCPCS: 36415; 80053; 80061; 82043; 82570; 83036

== ENCOUNTER → 2018-05-31 09:38 | Outpatient (CLI) | payer BC, SELFPAY ==
--- NOTE | 2018-05-31 09:49 | RAD_ITS ---
STUDY: X-RAY - LEFT WRIST REASON FOR EXAM: Female, 43 years old. Pain for 1.5 months after a beam fell on the arm. TECHNIQUE: 4 view(s) of the wrist were obtained. COMPARISON: None. FINDINGS: Normal visualized distal radius and ulna. Normal radiocarpal articulation. Normal distal radioulnar articulation. Normal carpal bones. Normal carpal articulations. Normal carpometacarpal articulation of the thumb. Normal second through fifth carpometacarpal articulations. Normal visualized metacarpal bones. The soft tissue structures are unremarkable. RAD/Wrist min 3 Views IMPRESSION: Normal x-ray examination of the wrist. Electronically Signed: Sarthak Forman DO at 23:24 EST Tel [phone], Service support ,
--- OUTSIDE RECORDS SUMMARY | 2018-08-05 01:31 | XMS RPT_ITS ---
:1975 External Reference #:[id number] Author Organization OHIP Care Team Providers Name Role Phone Farrukh Prajapati Attending Unavailable Farrukh Prajapati Primary Care Unavailable Farrukh Prajapati Attending Unavailable Farrukh Prajapati Primary Care Unavailable Farrukh Prajapati Attending Unavailable Farrukh Prajapati Primary Care Unavailable Farrukh Prajapati Attending Unavailable Farrukh Prajapati Primary Care Unavailable Farrukh Prajapati Attending Unavailable LetycasaFarrukh Referring Unavailable Farrukh Prajapati Primary Care Unavailable Farrkuh Prajapati Attending Unavailable LetywillowFarrukh aflredo Referring Unavailable LetywillowFarrukh alfredo Primary Care Unavailable PROBLEMS PROBLEMS DATE TYPE CONDITION / CODE ATTENDING STATUS SOURCE 05/31/2018 Unknown M25.532 - Pain in Farrukh Prajapati left wrist / E Community M25.532(ICD-10) Hospital Repository 03/03/2018 Unknown E55.9 - Vitamin D Farrukh Prajapati deficiency, E Community unspecified / Hospital E55.9(ICD-10) Repository PROCEDURES PROCEDURES No Procedure Records FoundRESULTS RESULTS GASTRIC EMPTYING Observed: 06/07/2018 Status: F Source: POCASSET STUDY 10:38 AM [facility] REPOSITORY [facility] Imaging Services [address] [place] [address] Gastric Emptying Study MR#: [id number] Acct: [id number] Name: RAVI RAMIREZ Rep #: [id number] : 1975 F 43 From: Christopher Madera DO PCP: Farrukh Prajapati MD Status: REG CLI Study: Gastric Emptying Study Date of Exam: 06/07/18 Exam# [id number] Ordering Dr: Farrukh Prajapati MD CLINICAL: 43-year-old female with reported history of early satiety. SEMI-SOLID PHASE 99m Tc SULFUR COLLOID GASTRIC EMPTYING STUDY COMPARISON: None available FINDINGS: The patient was administered 1.1 mCi of 99m Tc sulfur colloid mixed with oatmeal and consumed per os. Image acquisitions in the anterior-posterior projections for a total of 60 minutes. There is prompt visualization of the stomach. There is no gastroesophageal reflux identified. The T1/2 linear fit was calculated to be 38.41 minutes, (Normal: 12-56 minutes). NM/Gastric Emptying Study IMPRESSION: 1. NORMAL 99m Tc sulfur colloid semi-solid phase (oatmeal) gastric emptying imaging examination. A. There is normal and preserved semi-solid phase gastric emptying compared to normal controls. (Shaw, J Nucl Med Tech 38: 186, 2010). Electronically Signed: Christopher Madera DO at 23:29 EST Tel , Service support , CC: Farrukh Prajapati MD Legal Summer Intern: Signed WRIST MIN 3 VIEWS Observed: 05/31/2018 Status: F Source: [place] 9:43 AM [facility] REPOSITORY [facility] Imaging Services [address] [place] [address] Wrist min 3 Views MR#: [id number] Acct: [id number] Name: RAVI RAMIREZ Rep #: [id number] : 1975 F 43 From: Sarthak Forman DO PCP: Farrukh Prajapati MD Status: REG CLI Study: Wrist min 3 Views Date of Exam: 05/31/18 Exam# [id number] Ordering Dr: Farrukh Prajapati MD STUDY: X-RAY [...] Sarthak Forman DO at 23:24 EST Tel [phone], Service support , CC: Farrukh Prajapati MD Legal Summer Intern: Signed HEMOGLOBIN A1C Collected: 05/26/2018 Status: F Source: [place] 11:00 AM [facility] REPOSITORY TYPE CODE TESTS RESULT OUT OF RANGE REFERENCE UNITS LAB L501.9985 4.2-6.3 % High HGB A1C 9.8 Performed By: #### L501.9985 #### [facility] [address] [place], [place], [address] COMPREHENSIVE METABOLIC Collected: 05/26/2018 Status: F Source: [place] PROFIL 11:00 AM [facility] REPOSITORY TYPE CODE TESTS RESULT OUT OF [...] 9 Performed By: #### L500.4050, L500.4100 #### [facility] [address] [place], [address] LIPID PROFILE Collected: 05/26/2018 Status: F Source: [place] 11:00 AM [facility] REPOSITORY TYPE CODE TESTS RESULT OUT OF [...] 32 Performed By: #### L500.4050, L500.4100 #### [facility] [address] [place], [place], [address] MICROALB:CREAT Collected: 05/26/2018 Status: F Source: [place] RATIO,RANDOM UR 11:00 AM [facility] REPOSITORY TYPE CODE TESTS RESULT OUT OF RANGE REFERENCE UNITS LAB L501.1200 NO RANGE EST. mg/dL Normal UR CREAT 102.00 LAB L502.0500 NO RANGE EST. mg/L Normal 76.5 MICROALBUMIN ,UR LAB L502.0600 <30 mg/g CRE mg/g CRE High 75.0 MALB:CREAT Performed By: #### L502.0250 #### [facility] [address] [facility] [place], [address] URINALYSIS, COMPLETE Collected: 05/01/2018 Status: F Source: [place] 3:56 PM [facility] REPOSITORY Order Comment: How was Urine Obtained? [...] URINE SEEN Performed By: #### L400.0001 #### [facility] [address] [place], [address] VITAMIN D,25 HYDROXY Collected: 05/01/2018 Status: F Source: [place] 3:55 PM [facility] REPOSITORY Order Comment: Order Date: 10/27/17 Order Info: [id number] - VITD25 TYPE CODE TESTS RESULT OUT [...] L100.0100, L500.4050, L500.4100, L501.9520, L501.9985, L502.0250 #### [facility] [place], [address] CBC W/DIFF, AUTOMATED Collected: 05/01/2018 Status: F Source: [place] 3:55 PM [facility] REPOSITORY Order Comment: Order Date: 10/27/17 Order [...] L100.0100, L500.4050, L500.4100, L501.9520, L501.9985, L502.0250 #### [facility] [address] [place], [address] COMPREHENSIVE METABOLIC Collected: 05/01/2018 Status: F Source: [place] ANGEL 3:55 PM [facility] REPOSITORY Order Comment: Order Date: 10/27/17 Order Info: 0786-1 - CMP Order Info: [id number] - LIPID Order Info: 3016-3 - TSH [...] L100.0100, L500.4050, L500.4100, L501.9520, L501.9985, L502.0250 #### [facility] [address] [place], [place], [address] LIPID PROFILE Collected: 05/01/2018 Status: F Source: [place] 3:55 PM [facility] REPOSITORY Order Comment: Order Date: 10/27/17 Order Info: 0786-1 - CMP Order Info: [id number] - LIPID Order Info: 3016-3 - TSH [...] L100.0100, L500.4050, L500.4100, L501.9520, L501.9985, L502.0250 #### [facility] [address] [place], [place], [address] THYROID STIM HORMONE Collected: 05/01/2018 Status: F Source: [place] (TSH) 3:55 PM [facility] REPOSITORY Order Comment: Order Date: 10/27/17 Order Info: [id number] - CMP Order Info: [id number] - LIPID Order Info: 3016-3 - TSH TYPE CODE TESTS RESULT OUT OF RANGE REFERENCE UNITS LAB L501.9520 0.358-3.74 uIU/mL Normal TSH 1.19 Performed By: #### L506.1000, L100.0100, L500.4050, L500.4100, L501.9520, L501.9985, L502.0250 #### [facility] [address] [place], [place], [address] HEMOGLOBIN A1C Collected: 05/01/2018 Status: F Source: [place] 3:55 PM [facility] REPOSITORY Order Comment: Order Date: 10/27/17 Order Info: 4548-4 - A1C TYPE CODE TESTS RESULT OUT OF RANGE REFERENCE UNITS LAB L501.9985 4.2-6.3 % High HGB A1C 9.9 Performed By: #### L506.1000, L100.0100, L500.4050, L500.4100, L501.9520, L501.9985, L502.0250 #### [facility] [address] [place], [place], [address] MICROALB:CREAT Collected: 05/01/2018 Status: F Source: [place] RATIO,RANDOM UR 3:55 PM [facility] REPOSITORY Order Comment: Order Date: 10/27/17 Order Info: 0779-1 - MIACRE TYPE CODE TESTS RESULT OUT OF RANGE REFERENCE UNITS LAB L501.1200 NO RANGE EST. mg/dL Normal UR CREAT 102.00 LAB L502.0500 NO RANGE EST. mg/L Normal 112.0 MICROALBUMIN ,UR LAB L502.0600 <30 mg/g CRE mg/g CRE High 109.8 MALB:CREAT Performed By: #### L506.1000, L100.0100, L500.4050, L500.4100, L501.9520, L501.9985, L502.0250 #### [facility] [address] [place], [address] HEMOGLOBIN A1C Collected: 02/28/2018 Status: F Source: [place] 3:48 PM [facility] REPOSITORY TYPE CODE TESTS RESULT OUT OF RANGE REFERENCE UNITS LAB L501.9985 4.2-6.3 % High HGB A1C 8.2 Performed By: #### L501.9985 #### [facility] [address] [facility] [place], [address] VITAMIN D,25 HYDROXY Collected: 02/28/2018 Status: F Source: [place] 3:48 PM [facility] REPOSITORY TYPE CODE TESTS RESULT OUT OF RANGE REFERENCE UNITS LAB L506.1000 29.95-100.01 ng/mL Normal Vitamin D 35.1 25-OH Result Comment: Vitamin D 25(OH) Status Range Deficiency <20 ng/mL (50nmol/L) Insuffciency 20 - 30 ng/mL (50 - 75 nmol/L) Sufficiency 30 - 100 ng/mL (75 - 250 nmol/L) Toxicity >100 ng/mL (>250 nmol/L) Performed By: #### L506.1000 #### [facility] [address] [facility] [place], [address] COMPREHENSIVE METABOLIC Collected: 02/28/2018 Status: F Source: [place] [facility] 3:48 PM [facility] REPOSITORY TYPE CODE TESTS RESULT OUT OF [...] 9 Performed By: #### L500.4050, L500.4100 #### [facility] [address] [place], [place], [address] LIPID PROFILE Collected: 02/28/2018 Status: F Source: [place] 3:48 PM [facility] REPOSITORY TYPE CODE TESTS RESULT OUT OF [...] 42 Performed By: #### L500.4050, L500.4100 #### [facility] [address] [place], [address] MICROALB:CREAT Collected: 02/28/2018 Status: F Source: [place] RATIO,RANDOM UR 3:48 PM [facility] REPOSITORY TYPE CODE TESTS RESULT OUT OF RANGE REFERENCE UNITS LAB L501.1200 NO RANGE EST. mg/dL Normal UR CREAT 221.00 LAB L502.0500 NO RANGE EST. mg/L Normal 124.0 MICROALBUMIN ,UR LAB L502.0600 <30 mg/g CRE mg/g CRE High 56.1 MALB:CREAT Performed By: #### L502.0250 #### [facility] [address] [place], [place], [address] CBC W/DIFF, AUTOMATED Collected: 10/26/2017 Status: F Source: [place] 12:01 PM [facility] REPOSITORY TYPE CODE TESTS RESULT OUT OF [...] Lymph 2.14 Performed By: #### L100.0100 #### [facility] [address] [place], [address] HEMOGLOBIN A1C Collected: 10/26/2017 Status: F Source: [place] 12:01 PM [facility] REPOSITORY TYPE CODE TESTS RESULT OUT OF RANGE REFERENCE UNITS LAB L501.9985 4.2-6.3 % High HGB A1C 8.1 Performed By: #### L501.9985 #### [facility] [address] [place], [address] URINALYSIS, COMPLETE Collected: 10/26/2017 Status: F Source: [place] 12:01 [facility] REPOSITORY Order Comment: How was Urine Obtained? [...] URINE SEEN Performed By: #### L400.0001 #### [facility] [address] [place], [address] VITAMIN D,25 HYDROXY Collected: 10/26/2017 Status: F Source: [place] 12:01 PM [facility] REPOSITORY TYPE CODE TESTS RESULT OUT OF RANGE REFERENCE UNITS LAB L506.1000 29.95-100.01 ng/mL Normal Vitamin D 38.8 25-OH Result Comment: Vitamin D 25(OH) Status Range Deficiency <20 ng/mL (50nmol/L) Insuffciency 20 - 30 ng/mL (50 - 75 nmol/L) Sufficiency 30 - 100 ng/mL (75 - 250 nmol/L) Toxicity >100 ng/mL (>250 nmol/L) Performed By: #### L506.1000 #### [facility] [address] [facility] [place], [address] COMPREHENSIVE METABOLIC Collected: 10/26/2017 Status: F Source: [facility] 12:01 PM [facility] REPOSITORY TYPE CODE TESTS RESULT OUT OF [...] Performed By: #### L500.4050, L500.4100, L501.9520 #### [facility] [address] [place], [address] LIPID PROFILE Collected: 10/26/2017 Status: F Source: [place] 12:01 PM [facility] REPOSITORY TYPE CODE TESTS RESULT OUT OF [...] Performed By: #### L500.4050, L500.4100, L501.9520 #### [facility] [address] [facility] [place], [address] THYROID STIM HORMONE Collected: 10/26/2017 Status: F Source: [place] (TSH) 12:01 PM [facility] REPOSITORY TYPE CODE TESTS RESULT OUT OF RANGE REFERENCE UNITS LAB L501.9520 0.358-3.74 uIU/mL Normal TSH 1.03 Performed By: #### L500.4050, L500.4100, L501.9520 #### [facility] [address] [place], [address] MICROALB:CREAT Collected: 10/26/2017 Status: F Source: [place] RATIO,RANDOM UR 12:01 [facility] REPOSITORY TYPE CODE TESTS RESULT OUT OF RANGE REFERENCE UNITS LAB L501.1200 NO RANGE EST. mg/dL Normal UR CREAT 278.00 LAB L502.0500 NO RANGE EST. mg/L Normal 148.0 MICROALBUMIN ,UR LAB L502.0600 <30 mg/g CRE mg/g CRE High 53.2 MALB:CREAT Performed By: #### L502.0250 #### [facility] [address] [facility] [place], [address] ALLERGIES ALLERGIES DATE TYPE / CODE NAME / CODE REACTION SEVERITY SOURCE 04/16/2016 Drug No Known Unknown [facility] Allergy/4160 Allergies/F00 Hospital [address](SNOMED 3777007(RXNOR Repository CT) M) ENCOUNTERS ENCOUNTERS ADMIT/DISCHARGE ACCOUNT ADMITTING ENCOUNTER LOCATION SOURCE NUMBER CLASS 06/07/[id number] ing:[place] Repository 05/31/2018 [id number] Ambulatory [address] ing:MTRAD Repository 05/26/[id number] ing:MFPLAB Repository 05/01/2018 [id number] Ambulatory [place] [address] [facility] ing:MFPLAB Repository 02/28/2018 [id number] Ambulatory [place] 5 [facility] ing:MFPLAB Repository 10/26/2017 [id number] Ambulatory [place] 1 [facility] ing:MFPLAB Repository PAYERS PAYERS ENCOUNTER GUARANTOR PAYER SUBSCRIBER SOURCE 06/07/2018 CARRY J Primary CARRY J [place] [id number] Insurance:ANTHEMPolic FENSTERMAKERDOB: [facility] [place] y Number: [id number] [id number] Repository [address]Gpe: (330) Date:5889-62-75PW [phone] () [address] [place] [address] [place] [address]PD: 06/07/2018 Secondary NOT GIVENUNK [place] Insurance:SELF PAY [facility] Number: Effective Repository Date:2018-06-01 05/31/2018 CARRY J Primary CARRY J [place] [id number] Insurance:ANTHEMPolic FENSTERMAKERDOB: [facility] [place] y Number: [id number], [place] [id number] Repository [address]Zeb: (330) Date:1932-86-95WW [phone] () [id number], [place] [address]BZ: 05/31/2018 Secondary NOT GIVENUNK [place] Insurance:SELF PAY [facility] Number: Effective Repository Date:2018-05-31 05/26/2018 CARRY J Primary CARRY J [place] [id number] Insurance:ANTHEMPolic FENSTERMAKERDOB: [facility] [place] y Number: [id number], [place] [id number] Repository [address]Bod: (330) Date:5478-44-54VT [phone] () [address]KPTQKDS [place] [address]OS: 05/26/2018 Secondary NOT GIVENUNK [place] Insurance:SELF PAY [facility] Number: Effective Repository Date:2018-05-26 05/01/2018 CARRY J Primary CARRY J [place] [id number] Insurance:ANTHEMPolic FENSTERMAKERDOB: [facility] y Number: [id number], [place] [id number] Repository [address]Oqz: (330) Date:7379-76-31ZG [phone] () [address]008[address]YDHCWRJ, [place] [address]MU: 05/01/2018 Secondary NOT GIVENUNK [place] Insurance:SELF PAY [facility] Number: Effective Repository Date:2018-05-01 02/28/2018 CARRY J Primary CARRY J [place] [id number] Insurance:ANTHEMPolic FENSTERMAKERDOB: [facility] y Number: [id number], [place] [id number] Repository [address]Scf: (330) Date:1399-29-71WS [phone] () [address]XR[place]S, [place] [address]EL: 02/28/2018 Secondary NOT GIVENUNK [place] Insurance:SELF PAY [facility] Number: Effective Repository Date:2018-02-28 10/26/2017 CARRY J Primary CARRY J [place] [id number] Insurance:ANTHEMPolic FENSTERMAKERDOB: [facility] y Number: [id number], [place] [id number] Repository [address]Xfw: (330) Date:1508-71-18MM [phone] () [id number], [place] [address]ZJ: 10/26/2017 Secondary NOT GIVENUNK [place] Insurance:SELF PAY [facility] Number: Effective Repository Date:2017-10-26
== END ==
LOC: MTRAD 09:40
PROVIDERS: Family Provider Family Medicine; PCP Family Medicine; Referring Provider Family Medicine; Visit Provider Family Medicine
DX: M25.532 Pain in left wrist (principal)
CPT/HCPCS: 73110

== ENCOUNTER → 2018-06-07 10:35 | Outpatient (CLI) | payer BC, SELFPAY ==
--- NOTE | 2018-06-07 10:37 | NM_ITS ---
CLINICAL: 43-year-old female with reported history of early satiety. SEMI-SOLID PHASE 99m Tc SULFUR COLLOID GASTRIC EMPTYING STUDY COMPARISON: None available FINDINGS: The patient was administered 1.1 mCi of 99m Tc sulfur colloid mixed with oatmeal and consumed per os. Image acquisitions in the anterior-posterior projections for a total of 60 minutes. There is prompt visualization of the stomach. There is no gastroesophageal reflux identified. The T1/2 linear fit was calculated to be 38.41 minutes, (Normal: 12-56 minutes). NM/Gastric Emptying Study IMPRESSION: 1. NORMAL 99m Tc sulfur colloid semi-solid phase (oatmeal) gastric emptying imaging examination. A. There is normal and preserved semi-solid phase gastric emptying compared to normal controls. (Jose Francisco et al, J Nucl Med Tech 38: 186, 2010). Electronically Signed: Christopher Madera DO at 23:29 EST Tel , Service support ,
--- OUTSIDE RECORDS SUMMARY | 2018-08-09 07:52 | XMS RPT_ITS ---
[...] Attending Unavailable Farrukh Prajapati [facility] Unavailable LetyFarrukh cormier Attending Unavailable Farrukh Prajapati [facility] Unavailable PROBLEMS PROBLEMS DATE TYPE CONDITION / CODE ATTENDING STATUS SOURCE 05/31/2018 Unknown M25.532 - Pain in Farrukh Prajapati left wrist / [facility] M25.532(ICD-10) Hospital Repository 03/03/2018 Unknown E55.9 - Vitamin D Farrukh Prajapati deficiency, E Community unspecified / Hospital E55.9(ICD-10) Repository PROCEDURES PROCEDURES No Procedure Records FoundRESULTS RESULTS GASTRIC EMPTYING Observed: 06/07/2018 Status: F Source: [place]T STUDY 10:38 AM [facility] REPOSITORY [facility] Imaging Services [address] [place] [address] Gastric Emptying Study MR#: [id number] Acct: [id number] Name: RAVI RAMIREZ Rep #: [id number] : 1975 F 43 From: Christopher Madera DO PCP: Farrukh Prajapati MD Status: REG CLI Study: Gastric Emptying Study Date of Exam: 06/07/18 Exam# [id number] Ordering Dr: Farrukh Prajapati MD CLINICAL: 43-year-old [...] Service support , CC: Farrukh Prajapati MD Quality Assurance Inspector: Signed WRIST MIN 3 VIEWS Observed: 05/31/2018 Status: F Source: [place] 9:43 AM [facility] REPOSITORY [facility] Imaging Services [address] [place] [address] Wrist min 3 Views MR#: [id number] Acct: [id number] Name: RAVI RAMIREZ Rep #: [id number] : 1975 F 43 From: Sarthak Forman DO PCP: Farrukh Prajapati MD Status: REG CLI Study: Wrist min 3 Views Date of Exam: 05/31/18 Exam# [id number] Ordering Dr: Farrukh Prajapati MD STUDY: X-RAY [...] Sarthak Forman DO at 23:24 EST Tel [phone], Service support , CC: Farrukh Prajapati MD Quality Assurance Inspector: Signed HEMOGLOBIN A1C Collected: 05/26/2018 Status: F Source: [place] 11:00 AM [facility] REPOSITORY TYPE CODE TESTS RESULT OUT OF RANGE REFERENCE UNITS LAB L501.9985 4.2-6.3 % High HGB A1C 9.8 Performed By: #### L501.9985 #### [facility] [address] [place], [place], [address] COMPREHENSIVE METABOLIC Collected: 05/26/2018 Status: F Source: [place] PROFIL 11:00 AM [facility] REPOSITORY TYPE CODE TESTS RESULT [...] 9 Performed By: #### L500.4050, L500.4100 #### [facility] [address] [place], [address] LIPID PROFILE Collected: 05/26/2018 Status: F Source: [place] 11:00 AM [facility] REPOSITORY TYPE CODE TESTS RESULT [...] 32 Performed By: #### L500.4050, L500.4100 #### [facility] [address] [place], [place], [address] MICROALB:CREAT Collected: 05/26/2018 Status: F Source: [place]AY[place] RATIO,RANDOM UR 11:00 AM [facility] REPOSITORY TYPE CODE TESTS RESULT OUT OF RANGE REFERENCE UNITS LAB L501.1200 NO RANGE EST. mg/dL Normal UR CREAT 102.00 LAB L502.0500 NO RANGE EST. mg/L Normal 76.5 MICROALBUMIN ,UR LAB L502.0600 <30 mg/g CRE mg/g CRE High 75.0 MALB:CREAT Performed By: #### L502.0250 #### [facility] [address] [facility] [place], [address] URINALYSIS, COMPLETE Collected: 05/01/2018 Status: F Source: [place]AY[place] 3:56 PM [facility] REPOSITORY Order Comment: How was Urine Obtained? [...] URINE SEEN Performed By: #### L400.0001 #### [facility] [address] [place], [address] VITAMIN D,25 HYDROXY Collected: 05/01/2018 Status: F Source: [place]AY[place] 3:55 PM [facility] REPOSITORY Order Comment: Order Date: 10/27/17 Order Info: [id number] - VITD25 TYPE CODE TESTS RESULT OUT [...] L100.0100, L500.4050, L500.4100, L501.9520, L501.9985, L502.0250 #### [facility] [place], [address] CBC W/DIFF, AUTOMATED Collected: 05/01/2018 Status: F Source: [place]AY[place] 3:55 PM [facility] REPOSITORY Order Comment: Order Date: 10/27/17 Order [...] L100.0100, L500.4050, L500.4100, L501.9520, L501.9985, L502.0250 #### [facility] [address] [place], [address] COMPREHENSIVE METABOLIC Collected: 05/01/2018 Status: F Source: JAY[place] ANGEL 3:55 PM [facility] REPOSITORY Order Comment: Order Date: 10/27/17 Order Info: [id number] - CMP Order Info: [id number] - LIPID Order Info: 3016-3 - TSH [...] L100.0100, L500.4050, L500.4100, L501.9520, L501.9985, L502.0250 #### [facility] [address] [place], [place], [address] LIPID PROFILE Collected: 05/01/2018 Status: F Source: JAY[place]ON 3:55 PM [facility] REPOSITORY Order Comment: Order Date: 10/27/17 Order Info: [id number] - CMP Order Info: [id number] - LIPID Order Info: 3016-3 - TSH [...] L100.0100, L500.4050, L500.4100, L501.9520, L501.9985, L502.0250 #### [facility] [address] [place], [place], [address] THYROID STIM HORMONE Collected: 05/01/2018 Status: F Source: JAY[place]ON (TSH) 3:55 PM [facility] REPOSITORY Order Comment: Order Date: 10/27/17 Order Info: [id number] - CMP Order Info: [id number] - LIPID Order Info: [id number] - TSH TYPE CODE TESTS RESULT OUT OF RANGE REFERENCE UNITS LAB L501.9520 0.358-3.74 uIU/mL Normal TSH 1.19 Performed By: #### L506.1000, L100.0100, L500.4050, L500.4100, L501.9520, L501.9985, L502.0250 #### [facility] [address] [place], [place], [address] HEMOGLOBIN A1C Collected: 05/01/2018 Status: F Source: [place]AY[place]ON 3:55 PM [facility] REPOSITORY Order Comment: Order Date: 10/27/17 Order Info: [id number] - A1C TYPE CODE TESTS RESULT OUT OF RANGE REFERENCE UNITS LAB L501.9985 4.2-6.3 % High HGB A1C 9.9 Performed By: #### L506.1000, L100.0100, L500.4050, L500.4100, L501.9520, L501.9985, L502.0250 #### [facility] [address] [place], [place], [address] MICROALB:CREAT Collected: 05/01/2018 Status: F Source: [place]AY[place]ON RATIO,RANDOM UR 3:55 PM [facility] REPOSITORY Order Comment: Order Date: 10/27/17 Order Info: [id number] - MIACRE TYPE CODE TESTS RESULT OUT OF RANGE REFERENCE UNITS LAB L501.1200 NO RANGE EST. mg/dL Normal UR CREAT 102.00 LAB L502.0500 NO RANGE EST. mg/L Normal 112.0 MICROALBUMIN ,UR LAB L502.0600 <30 mg/g CRE mg/g CRE High 109.8 MALB:CREAT Performed By: #### L506.1000, L100.0100, L500.4050, L500.4100, L501.9520, L501.9985, L502.0250 #### [facility] [address] [place], [address] HEMOGLOBIN A1C Collected: 02/28/2018 Status: F Source: ARNETT 3:48 PM [facility] REPOSITORY TYPE CODE TESTS RESULT OUT OF RANGE REFERENCE UNITS LAB L501.9985 4.2-6.3 % High HGB A1C 8.2 Performed By: #### L501.9985 #### [facility] [address] [place], [address] VITAMIN D,25 HYDROXY Collected: 02/28/2018 Status: F Source: ARNETT 3:48 PM [facility] REPOSITORY TYPE CODE TESTS RESULT OUT OF RANGE REFERENCE UNITS LAB L506.1000 29.95-100.01 ng/mL Normal Vitamin D 35.1 25-OH Result Comment: Vitamin D 25(OH) Status Range Deficiency <20 ng/mL (50nmol/L) Insuffciency 20 - 30 ng/mL (50 - 75 nmol/L) Sufficiency 30 - 100 ng/mL (75 - 250 nmol/L) Toxicity >100 ng/mL (>250 nmol/L) Performed By: #### L506.1000 #### [facility] [address] [facility] [place], [address] COMPREHENSIVE METABOLIC Collected: 02/28/2018 Status: F Source: [place] [facility] 3:48 PM [facility] REPOSITORY TYPE CODE TESTS RESULT [...] 9 Performed By: #### L500.4050, L500.4100 #### [facility] [address] [place], [place], [address] LIPID PROFILE Collected: 02/28/2018 Status: F Source: ARNETT 3:48 PM [facility] REPOSITORY TYPE CODE TESTS RESULT [...] 42 Performed By: #### L500.4050, L500.4100 #### [facility] [address] [place], [address] MICROALB:CREAT Collected: 02/28/2018 Status: F Source: ARNETT RATIO,RANDOM UR 3:48 PM [facility] REPOSITORY TYPE CODE TESTS RESULT OUT OF RANGE REFERENCE UNITS LAB L501.1200 NO RANGE EST. mg/dL Normal UR CREAT 221.00 LAB L502.0500 NO RANGE EST. mg/L Normal 124.0 MICROALBUMIN ,UR LAB L502.0600 <30 mg/g CRE mg/g CRE High 56.1 MALB:CREAT Performed By: #### L502.0250 #### [facility] [address] [place], [place], [address] CBC W/DIFF, AUTOMATED Collected: 10/26/2017 Status: F Source: ARNETT 12:01 PM [facility] REPOSITORY TYPE CODE TESTS RESULT [...] Lymph 2.14 Performed By: #### L100.0100 #### [facility] [address] [place], [address] HEMOGLOBIN A1C Collected: 10/26/2017 Status: F Source: ARNETT 12:01 PM [facility] REPOSITORY TYPE CODE TESTS RESULT OUT OF RANGE REFERENCE UNITS LAB L501.9985 4.2-6.3 % High HGB A1C 8.1 Performed By: #### L501.9985 #### [facility] [address] [place], [address] URINALYSIS, COMPLETE Collected: 10/26/2017 Status: F Source: ARNETT 12:01 [facility] REPOSITORY Order Comment: How was Urine Obtained? [...] URINE SEEN Performed By: #### L400.0001 #### [facility] [address] [place], [address] VITAMIN D,25 HYDROXY Collected: 10/26/2017 Status: F Source: ARNETT 12:01 PM [facility] REPOSITORY TYPE CODE TESTS RESULT OUT OF RANGE REFERENCE UNITS LAB L506.1000 29.95-100.01 ng/mL Normal Vitamin D 38.8 25-OH Result Comment: Vitamin D 25(OH) Status Range Deficiency <20 ng/mL (50nmol/L) Insuffciency 20 - 30 ng/mL (50 - 75 nmol/L) Sufficiency 30 - 100 ng/mL (75 - 250 nmol/L) Toxicity >100 ng/mL (>250 nmol/L) Performed By: #### L506.1000 #### [facility] [address] [place], [address] COMPREHENSIVE METABOLIC Collected: 10/26/2017 Status: F Source: [facility] 12:01 PM [facility] REPOSITORY TYPE CODE TESTS RESULT [...] Performed By: #### L500.4050, L500.4100, L501.9520 #### [facility] [address] [place], [address] LIPID PROFILE Collected: 10/26/2017 Status: F Source: ARNETT 12:01 PM [facility] REPOSITORY TYPE CODE TESTS RESULT [...] Performed By: #### L500.4050, L500.4100, L501.9520 #### [facility] [address] [facility] [place] [place], [address] THYROID STIM HORMONE Collected: 10/26/2017 Status: F Source: JAYLON (TSH) 12:01 PM [facility] REPOSITORY TYPE CODE TESTS RESULT OUT OF RANGE REFERENCE UNITS LAB L501.9520 0.358-3.74 uIU/mL Normal TSH 1.03 Performed By: #### L500.4050, L500.4100, L501.9520 #### [facility] [address] [place], [address] MICROALB:CREAT Collected: 10/26/2017 Status: F Source: JAY[place]ON RATIO,RANDOM UR 12:01 [facility] REPOSITORY TYPE CODE TESTS RESULT OUT OF RANGE REFERENCE UNITS LAB L501.1200 NO RANGE EST. mg/dL Normal UR CREAT 278.00 LAB L502.0500 NO RANGE EST. mg/L Normal 148.0 MICROALBUMIN ,UR LAB L502.0600 <30 mg/g CRE mg/g CRE High 53.2 MALB:CREAT Performed By: #### L502.0250 #### [facility] [address] [facility] [place] [place], [address] ALLERGIES ALLERGIES DATE TYPE / CODE NAME / CODE REACTION SEVERITY SOURCE 04/16/2016 Drug No Known Unknown [facility] Allergy/4160 Allergies/F00 Hospital 67365(SNOMED 3694014(RXNOR Repository CT) M) ENCOUNTERS ENCOUNTERS ADMIT/DISCHARGE ACCOUNT ADMITTING ENCOUNTER LOCATION SOURCE NUMBER CLASS 06/07/[id number] ing:NM Repository 05/31/2018 [id number] Ambulatory [address] ing:MTRAD Repository 05/26/[id number] ing:MFPLAB Repository 05/01/2018 [id number] Ambulatory [place] 4 [facility] ing:MFPLAB Repository 02/28/2018 [id number] Ambulatory [place] 5 [facility] ing:MFPLAB Repository 10/26/2017 [id number] Ambulatory [place] 1 [facility] ing:MFPLAB Repository PAYERS PAYERS ENCOUNTER GUARANTOR PAYER SUBSCRIBER SOURCE 06/07/2018 CARRY J Primary CARRY J [place] [id number] Insurance:ANTHEMPolic FENSTERMAKERDOB[facility] [place] y [place]: [id number] [id number] Repository [address]Gsu: (330) Date:7793-68-69[phone] () [address] [place] [address] [place] [address]DI: 06/07/2018 Secondary NOT GIVENUNK [place] Insurance:SELF PAY [facility] Number: Effective Repository Date:2018-06-01 05/31/2018 CARRY J Primary CARRY J [place] [id number] Insurance:ANTHEMPolic FENSTERMAKERDOB: [facility] [place] y Number: [id number], [place] [id number] Repository [address]Zis: ([phone]) Date:3541-46-07IM [phone] () [address], [place] [address]AB: 05/31/2018 Secondary NOT GIVENUNK [place] Insurance:SELF PAY [facility] Number: Effective Repository Date:2018-05-31 05/26/2018 CARRY J Primary CARRY J [place] [id number] Insurance:ANTHEMPolic FENSTERMAKERDOB: [facility] [place]OH[place] y Number: [id number] [id number] Repository [address]Hsy: ([phone]) Date:3881-23-22MJ [phone] () [address] [address]CI: 05/26/2018 Secondary NOT GIVENUNK [place] Insurance:SELF PAY [facility] Number: Effective Repository Date:2018-05-26 05/01/2018 CARRY J Primary CARRY J [place] [id number] Insurance:ANTHEMPolic [facility] Number: [id number], [place] [id number] Repository [address]Nmz: ([phone]) Date:5164-58-47EY [phone] () [address], [place] [address]PK: 05/01/2018 Secondary NOT GIVENUNK [place] Insurance:SELF PAY [facility] Number: Effective Repository Date:2018-05-01 02/28/2018 CARRY J Primary CARRY J [place] [id number] Insurance:ANTHEMPolic [place] [facility] [place]: [id number] [id number] Repository [address]Xkq: ([phone]) Date:4713-12-10UK [phone] () [id number], [place] [address]UK: 02/28/2018 Secondary NOT GIVENUNK [place] Insurance:SELF PAY [facility] Number: Effective Repository Date:2018-02-28 10/26/2017 CARRY J Primary CARRY J [place] [id number] Insurance:ANTHEMPolic [place]DOB[place] [facility] [place]: [id number] [id number] Repository [address]Nxx: (330) Date:0512-27-20QN [phone] () [id number], [place] [address]SI: 10/26/2017 Secondary NOT GIVENUNK [place] Insurance:SELF PAY [facility] Number: Effective Repository Date:2017-10-26
== END ==
LOC: NM 10:36
PROVIDERS: Family Provider Family Medicine; PCP Family Medicine; Referring Provider Family Medicine; Visit Provider Family Medicine
DX: R68.81 Early satiety (principal)
CPT/HCPCS: 78264; A9541

== ENCOUNTER → 2018-08-28 | Outpatient (CLI) | payer BC, SELFPAY ==
[2018-08-28 17:51] LABS: Hemoglobin A1c 9.8 % (4.2-6.3)
[2018-08-28 18:12] LABS: Microalbumin,Random Urine 61.9 mg/L (NO RANGE EST.)
[2018-08-28 18:26] LABS: AST(SGOT) 32 U/L (15-37); Alanine Aminotransfer ALT/SGPT 42 U/L (13-56); Alkaline Phosphatase 98 U/L (45-117); Anion Gap 8 (5-15); BUN 18 mg/dL (7-18); BUN/Creat Ratio 24.2 RATIO (10-20); Calcium,Total 8.9 mg/dL (8.5-10.1); Chloride 101 mmol/L (98-107); Cholesterol 136 mg/dL (200); Creatinine, Serum 0.74 mg/dL (0.55-1.02); EST Glomerular Filtration Rate 91 mL/min (>60); Est Glom Filt Rate - Afr Amer 110 mL/min (>60); Globulin 4.1 g/dL (2.2-4.2); Glucose 222 mg/dL (74-106); High Density Lipoprotein 32 mg/dL; Potassium 3.9 mmol/L (3.5-5.1); Protein, Total 8.1 g/dL (6.4-8.2); Sodium Level 135 mmol/L (136-145); Triglycerides 265 mg/dL; Very Low Density Lipoprotein 53 mg/dL (5-40)
[2018-08-28 18:33] LABS: Vitamin D,25 Hydroxy 32.5 ng/mL (29.95-100.01)
== END | disposition home or self-care (01) ==
LOC: MFPLAB 16:12
PROVIDERS: Family Provider Family Medicine; PCP Family Medicine; Referring Provider Family Medicine; Visit Provider Family Medicine
DX: E11.9 Type 2 diabetes mellitus without complications (principal); E55.9 Vitamin D deficiency, unspecified; R80.9 Proteinuria, unspecified
CPT/HCPCS: 36415; 80053; 80061; 82043; 82306; 82570; 83036

== ENCOUNTER → 2018-10-03 | Outpatient (CLI) | payer OTHER, SELFPAY ==
[2018-10-03 13:42] VITALS: BMI 43.8
--- NOTE | 2018-10-03 14:34 | RAD_ITS ---
STUDY: X-RAY - LEFT SHOULDER REASON FOR EXAM: Pain, injury today. TECHNIQUE: 4 view(s) of the shoulder. COMPARISON: None. FINDINGS: Normal glenohumeral articulation. Normal acromioclavicular joint. Normal acromion. Normal humeral head and visualized proximal humerus. The soft tissue structures are unremarkable. Normal visualized pulmonary apex. RAD/Shoulder min 2 Views IMPRESSION: Normal x-ray examination of the left shoulder. Electronically Signed: Jude Archer MD at 15:37 EDT Tel , Service support ,
== END | disposition home or self-care (01) ==
PROVIDERS: Family Provider Family Medicine; PCP Family Medicine; Referring Provider Nurse Practitioner Family; Visit Provider Nurse Practitioner Family
DX: S46.912A Strain of unspecified muscle, fascia and tendon at shoulder and upper arm level, left arm, initial encounter (principal)
CPT/HCPCS: 73030

== ENCOUNTER → 2018-12-06 | Outpatient (CLI) | payer BC, SELFPAY ==
[2018-10-11 16:41] VITALS: BMI 36.0
[2018-12-06 18:02] LABS: Hemoglobin A1c 10.6 % (4.2-6.3)
[2018-12-06 18:04] LABS: Microalbumin,Random Urine 22.1 mg/L (NO RANGE EST.); Microalbumin:Creatinine Ratio 50.8 mg/g CRE (<30 mg/g CRE)
[2018-12-06 18:09] LABS: AST(SGOT) 47 U/L (15-37); Alanine Aminotransfer ALT/SGPT 54 U/L (13-56); Albumin, Serum 3.7 g/dL (3.2-5.0); Alkaline Phosphatase 108 U/L (45-117); Anion Gap 9 (5-15); BUN 14 mg/dL (7-18); BUN/Creat Ratio 17.7 RATIO (10-20); Chloride 100 mmol/L (98-107); Cholesterol 119 mg/dL (200); Creatinine, Serum 0.79 mg/dL (0.55-1.02); EST Glomerular Filtration Rate 84 mL/min (>60); Est Glom Filt Rate - Afr Amer 102 mL/min (>60); Globulin 3.8 g/dL (2.2-4.2); Glucose 293 mg/dL (74-106); High Density Lipoprotein 31 mg/dL; Protein, Total 7.5 g/dL (6.4-8.2); Sodium Level 136 mmol/L (136-145); Triglycerides 277 mg/dL; Very Low Density Lipoprotein 55 mg/dL (5-40)
[2018-12-06 18:14] LABS: Vitamin D,25 Hydroxy 32.4 ng/mL (29.95-100.01)
== END | disposition home or self-care (01) ==
LOC: MFPLAB 16:49
PROVIDERS: Family Provider Family Medicine; PCP Family Medicine; Referring Provider Family Medicine; Visit Provider Family Medicine
DX: E11.9 Type 2 diabetes mellitus without complications (principal); R80.9 Proteinuria, unspecified; E55.9 Vitamin D deficiency, unspecified
CPT/HCPCS: 36415; 80053; 80061; 82043; 82306; 82570; 83036

== ENCOUNTER → 2021-01-16 08:11 | Outpatient (CLI) | payer OTHER, SELFPAY ==
[2021-01-16 10:42] LABS: Vitamin D,25 Hydroxy 57.7 ng/mL
[2021-01-16 10:45] LABS: ALB/GLOB Ratio 0.9 RATIO (0.9-2.4); AST(SGOT) 50 U/L (15-37); Alanine Aminotransfer ALT/SGPT 41 U/L (13-56); Albumin, Serum 3.6 g/dL (3.2-5.0); Alkaline Phosphatase 59 U/L (45-117); Anion Gap 10 (5-15); BUN 14 mg/dL (7-18); BUN/Creat Ratio 19.5 RATIO (10-20); Calcium,Total 8.7 mg/dL (8.5-10.1); Chloride 102 mmol/L (98-107); Cholesterol 122 mg/dL (200); Creatinine, Serum 0.72 mg/dL (0.55-1.02); EST Glomerular Filtration Rate 93 mL/min (>60); Est Glom Filt Rate - Afr Amer 113 mL/min (>60); Glucose 164 mg/dL (74-106); High Density Lipoprotein 37 mg/dL; Potassium 3.6 mmol/L (3.5-5.1); Protein, Total 7.6 g/dL (6.4-8.2); Sodium Level 137 mmol/L (136-145); Triglycerides 174 mg/dL; Very Low Density Lipoprotein 35 mg/dL (5-40)
[2021-01-16 10:46] LABS: Microalbumin,Random Urine 31.8 mg/L (NO RANGE EST.); Microalbumin:Creatinine Ratio 16.3 mg/g CRE (<30 mg/g CRE)
[2021-01-16 10:59] LABS: Hemoglobin A1c 7.8 % (3.8-5.6)
== END ==
LOC: MFPLAB 08:12
PROVIDERS: PCP Family Medicine; Referring Provider Family Medicine; Visit Provider Family Medicine
DX: E11.9 Type 2 diabetes mellitus without complications (principal); E55.9 Vitamin D deficiency, unspecified; R80.9 Proteinuria, unspecified
CPT/HCPCS: 36415; 80053; 80061; 82043; 82306; 82570; 83036

== ENCOUNTER → 2022-01-28 | Outpatient (CLI) | payer OTHER, SELFPAY ==
[2022-01-28 15:02] LABS: Absolute Lymphocyte Count 1.71 X10^3/uL (0.83-4.51); Absolute Neutrophil Count 3.9 X10^3/uL (2.0-7.7); Basophil# 0.03 X10^3/uL; Basophil% 0.5 % (0-1); Eosinophil# 0.08 X10^3/uL; Eosinophils% 1.3 % (0-5); Hematocrit 34.9 % (37-47); Hemoglobin 11.9 g/dL (12.0-15.0); Lymphocyte # 1.71 X10^3/ul (0.83-4.51); Lymphocyte % 28.2 % (19-41); Mean Corp Hgb Conc 34.1 g/dL (32-36); Mean Corpuscular Hgb 30.9 pg (27.0-32.0); Mean Corpuscular Volume 90.6 fL (81-99); Mean Platelet Vol. 13.1 fl (6.2-12.0); Monocyte# 0.39 X10^3/uL; Monocyte% 6.4 % (0-10); NRBC Flagged by Analyzer 0 % (0-5); Neutrophil # 3.85 X10^3/uL (2.7-7.7); Neutrophil % 63.4 % (47-70); Platelet Count 177 K/mm3 (150-450); RBC Distribution Width CV 12.4 % (11.6-14.6); RBC Distribution Width SD 40.7 fl (35.1-43.9); Red Blood Count 3.85 M/mm3 (4.2-5.4); White Blood Count 6.1 K/mm3 (4.4-11.0)
[2022-01-28 15:20] LABS: ALB/GLOB Ratio 0.9 RATIO (0.9-2.4); AST(SGOT) 28 U/L (15-37); Alanine Aminotransfer ALT/SGPT 23 U/L (13-56); Albumin, Serum 3.3 g/dL (3.2-5.0); Alkaline Phosphatase 59 U/L (45-117); Anion Gap 10 (5-15); BUN 12 mg/dL (7-18); BUN/Creat Ratio 15.1 RATIO (10-20); Chloride 103 mmol/L (98-107); Cholesterol 115 mg/dL (200); Creatinine, Serum 0.79 mg/dL (0.55-1.02); EST Glomerular Filtration Rate 83 mL/min (>60); Est Glom Filt Rate - Afr Amer 100 mL/min (>60); Globulin 3.8 g/dL (2.2-4.2); Glucose 191 mg/dL (74-106); High Density Lipoprotein 37 mg/dL; Protein, Total 7.1 g/dL (6.4-8.2); Sodium Level 138 mmol/L (136-145); Triglycerides 160 mg/dL; Very Low Density Lipoprotein 32 mg/dL (5-40)
[2022-01-28 15:21] LABS: Vitamin D,25 Hydroxy 31.9 ng/mL
[2022-01-28 15:26] LABS: Hemoglobin A1c 7.9 % (3.8-5.6)
[2022-01-28 15:34] LABS: Microalbumin,Random Urine 23.4 mg/L (NO RANGE EST.); Microalbumin:Creatinine Ratio 17.3 mg/g CRE (<30 mg/g CRE)
== END | disposition home or self-care (01) ==
LOC: MFPLAB 11:38
PROVIDERS: PCP Family Medicine; Referring Provider Family Medicine; Visit Provider Family Medicine
DX: E11.9 Type 2 diabetes mellitus without complications (principal); E55.9 Vitamin D deficiency, unspecified
CPT/HCPCS: 36415; 80053; 80061; 82043; 82306; 82570; 83036; 85025

== ENCOUNTER → 2022-04-26 | Outpatient (CLI) | payer OTHER, SELFPAY ==
[2022-04-26 17:55] LABS: Absolute Lymphocyte Count 2.12 X10^3/uL (0.83-4.51); Absolute Neutrophil Count 5.7 X10^3/uL (2.0-7.7); Basophil# 0.04 X10^3/uL; Basophil% 0.5 % (0-1); Eosinophil# 0.05 X10^3/uL; Eosinophils% 0.6 % (0-5); Hematocrit 38.8 % (37-47); Hemoglobin 12.8 g/dL (12.0-15.0); Lymphocyte # 2.12 X10^3/ul (0.83-4.51); Lymphocyte % 25.1 % (19-41); Mean Corpuscular Hgb 29.4 pg (27.0-32.0); Mean Platelet Vol. 12.3 fl (6.2-12.0); Monocyte# 0.47 X10^3/uL; Monocyte% 5.6 % (0-10); NRBC Flagged by Analyzer 0 % (0-5); Neutrophil # 5.72 X10^3/uL (2.7-7.7); Neutrophil % 67.6 % (47-70); Platelet Count 268 K/mm3 (150-450); RBC Distribution Width CV 12.8 % (11.6-14.6); RBC Distribution Width SD 41.6 fl (35.1-43.9); Red Blood Count 4.36 M/mm3 (4.2-5.4); White Blood Count 8.5 K/mm3 (4.4-11.0)
[2022-04-26 18:23] LABS: Hemoglobin A1c 7.3 % (3.8-5.6)
[2022-04-26 18:30] LABS: AST(SGOT) 32 U/L (15-37); Alanine Aminotransfer ALT/SGPT 24 U/L (13-56); Albumin, Serum 3.6 g/dL (3.2-5.0); Alkaline Phosphatase 53 U/L (45-117); Anion Gap 10 (5-15); BUN 11 mg/dL (7-18); BUN/Creat Ratio 13.2 RATIO (10-20); Chloride 101 mmol/L (98-107); Cholesterol 134 mg/dL (200); Creatinine, Serum 0.84 mg/dL (0.55-1.02); EST Glomerular Filtration Rate 78 mL/min (>60); Est Glom Filt Rate - Afr Amer 94 mL/min (>60); Ferritin 143 ng/mL (8-252); Globulin 3.7 g/dL (2.2-4.2); Glucose 149 mg/dL (74-106); High Density Lipoprotein 41 mg/dL; Iron 98 ug/dL (50-170); Iron Binding Capacity,Total 430 ug/dL (250-450); Potassium 4.2 mmol/L (3.5-5.1); Protein, Total 7.3 g/dL (6.4-8.2); Sodium Level 137 mmol/L (136-145); Triglycerides 225 mg/dL; Very Low Density Lipoprotein 45 mg/dL (5-40)
[2022-04-26 18:45] LABS: Vitamin B12 365 pg/mL (211-911)
[2022-04-26 19:23] LABS: Microalbumin:Creatinine Ratio 29.4 mg/g CRE (<30 mg/g CRE)
== END | disposition home or self-care (01) ==
LOC: MFPLAB 14:11
PROVIDERS: PCP Family Medicine; Visit Provider Family Medicine
DX: E11.9 Type 2 diabetes mellitus without complications (principal); D64.9 Anemia, unspecified
CPT/HCPCS: 36415; 80053; 80061; 82043; 82570; 82607; 82728; 82746; 83036; 83540; 83550; 85025

== ENCOUNTER → 2022-10-27 | Outpatient (CLI) | payer BC, SELFPAY ==
[2022-10-27 18:12] LABS: Absolute Lymphocyte Count 2.44 X10^3/uL (0.83-4.51); Absolute Neutrophil Count 3.5 X10^3/uL (2.0-7.7); Basophil# 0.04 X10^3/uL; Basophil% 0.6 % (0-1); Eosinophils% 1.5 % (0-5); Hematocrit 39.8 % (37-47); Hemoglobin 13.8 g/dL (12.0-15.0); Lymphocyte # 2.44 X10^3/ul (0.83-4.51); Lymphocyte % 36.9 % (19-41); Mean Corp Hgb Conc 34.7 g/dL (32-36); Mean Corpuscular Hgb 30.9 pg (27.0-32.0); Mean Corpuscular Volume 89.2 fL (81-99); Mean Platelet Vol. 12.3 fl (6.2-12.0); Monocyte# 0.48 X10^3/uL; Monocyte% 7.3 % (0-10); NRBC Flagged by Analyzer 0 % (0-5); Neutrophil # 3.54 X10^3/uL (2.7-7.7); Neutrophil % 53.5 % (47-70); Platelet Count 226 K/mm3 (150-450); RBC Distribution Width CV 12.2 % (11.6-14.6); RBC Distribution Width SD 39.8 fl (35.1-43.9); Red Blood Count 4.46 M/mm3 (4.2-5.4); White Blood Count 6.6 K/mm3 (4.4-11.0)
[2022-10-27 18:40] LABS: ALB/GLOB Ratio 0.8 RATIO (0.9-2.4); AST(SGOT) 22 U/L (15-37); Alanine Aminotransfer ALT/SGPT 25 U/L (13-56); Albumin, Serum 3.5 g/dL (3.2-5.0); Alkaline Phosphatase 66 U/L (45-117); Anion Gap 8 (5-15); BUN 13 mg/dL (7-18); BUN/Creat Ratio 16.5 RATIO (10-20); Calcium,Total 9.7 mg/dL (8.5-10.1); Chloride 103 mmol/L (98-107); Cholesterol 154 mg/dL (200); Creatinine, Serum 0.79 mg/dL (0.55-1.02); EST Glomerular Filtration Rate 84 mL/min (>60); Est Glom Filt Rate - Afr Amer 101 mL/min (>60); Globulin 4.4 g/dL (2.2-4.2); Glucose 168 mg/dL (74-106); High Density Lipoprotein 43 mg/dL; Potassium 4.1 mmol/L (3.5-5.1); Protein, Total 7.9 g/dL (6.4-8.2); Sodium Level 136 mmol/L (136-145); Triglycerides 167 mg/dL; Very Low Density Lipoprotein 33 mg/dL (5-40)
[2022-10-27 18:46] LABS: Vitamin D,25 Hydroxy 68.6 ng/mL
[2022-10-27 18:48] LABS: Hemoglobin A1c 8.2 % (3.8-5.6)
[2022-10-27 18:55] LABS: Microalbumin,Random Urine 19.7 mg/L (NO RANGE EST.); Microalbumin:Creatinine Ratio 30.5 mg/g CRE (<30 mg/g CRE)
== END | disposition home or self-care (01) ==
LOC: MFPLAB 16:09
PROVIDERS: PCP Family Medicine; Visit Provider Family Medicine
DX: E55.9 Vitamin D deficiency, unspecified (principal); E11.29 Type 2 diabetes mellitus with other diabetic kidney complication
CPT/HCPCS: 36415; 80053; 80061; 82043; 82306; 82570; 83036; 85025

== ENCOUNTER → 2023-01-27 | Outpatient (CLI) | payer BC, SELFPAY ==
[2023-01-27 17:55] LABS: Absolute Neutrophil Count 3.1 X10^3/uL (2.0-7.7); Basophil# 0.04 X10^3/uL; Basophil% 0.7 % (0-1); Eosinophil# 0.09 X10^3/uL; Eosinophils% 1.5 % (0-5); Hematocrit 36.8 % (37-47); Hemoglobin 12.5 g/dL (12.0-15.0); Lymphocyte % 37.8 % (19-41); Mean Corpuscular Hgb 30.6 pg (27.0-32.0); Mean Platelet Vol. 11.9 fl (6.2-12.0); Monocyte# 0.52 X10^3/uL; Monocyte% 8.5 % (0-10); NRBC Flagged by Analyzer 0 % (0-5); Neutrophil # 3.11 X10^3/uL (2.7-7.7); Platelet Count 232 K/mm3 (150-450); RBC Distribution Width SD 39.5 fl (35.1-43.9); Red Blood Count 4.09 M/mm3 (4.2-5.4); White Blood Count 6.1 K/mm3 (4.4-11.0)
[2023-01-27 18:18] LABS: AST(SGOT) 31 U/L (15-37); Alanine Aminotransfer ALT/SGPT 37 U/L (13-56); Albumin, Serum 3.8 g/dL (3.2-5.0); Alkaline Phosphatase 58 U/L (45-117); Anion Gap 5 (5-15); BUN 17 mg/dL (7-18); Calcium,Total 9.1 mg/dL (8.5-10.1); Chloride 105 mmol/L (98-107); Cholesterol 204 mg/dL (200); Creatinine, Serum 0.77 mg/dL (0.55-1.02); EST Glomerular Filtration Rate 85 mL/min (>60); Est Glom Filt Rate - Afr Amer 103 mL/min (>60); Glucose 130 mg/dL (74-106); High Density Lipoprotein 44 mg/dL; Potassium 4.1 mmol/L (3.5-5.1); Protein, Total 7.8 g/dL (6.4-8.2); Sodium Level 138 mmol/L (136-145); Triglycerides 188 mg/dL; Very Low Density Lipoprotein 38 mg/dL (5-40)
[2023-01-27 18:22] LABS: Vitamin D,25 Hydroxy 46.5 ng/mL
[2023-01-27 18:47] LABS: Hemoglobin A1c 7.8 % (3.8-5.6)
[2023-01-27 18:54] LABS: Microalbumin,Random Urine 40.2 mg/L (NO RANGE EST.); Microalbumin:Creatinine Ratio 23.5 mg/g CRE (<30 mg/g CRE)
== END | disposition home or self-care (01) ==
LOC: MTLAB 16:07
PROVIDERS: PCP Family Medicine; Visit Provider Family Medicine
DX: E11.9 Type 2 diabetes mellitus without complications (principal); E55.9 Vitamin D deficiency, unspecified
CPT/HCPCS: 36415; 80053; 80061; 82043; 82306; 82570; 83036; 85025

== ENCOUNTER → 2023-05-20 | Outpatient (CLI) | payer BC, SELFPAY ==
--- OUTSIDE RECORDS SUMMARY | 2023-05-20 16:53 | XMS RPT_ITS | CCD ---
Author Name Unknown Address [address] [place] [address] Organization [facility] Care Team Providers Care Brush Finisher Name Role Phone Candace Westbrook N Unavailable Kassie Morales Unavailable [phone] WestbrookRuma vasquezica N Unavailable Westbrook Candace N Unavailable Westbrook Candace N Unavailable Westbrook Candace N Unavailable Westbrook Candace N Unavailable WestbrookLalit vasquezCandace N Unavailable Medications Completed/Discontinued Medications Medication Drug Class(es) Dates Sig (Normalized) Sig (Original) gabapentin 400 mg oral capsule (13 sources) Anti-epileptic Agent GABAPENTIN 400 MG CAPS Two tablets at bed time GABAPENTIN [id number] Dougie CAT metFORMIN hydrochloride 500 mg oral tablet (13 sources) Biguanide METFORMIN HCL 50 0 MG TABS Two tablets at bed time METFORMIN HCL [id number] Dougie CAT MULTIPLE VITAMINS-MINERALS (10 sources) take 1 tablet by mouth once daily CENTRUM TABS One tablet by mouth daily MULTIPLE VITAMINS-MINERALS [id number] Dougie CAT MULTIPLE VITAMINS-MINERALS (3 sources) take 1 tablet by mouth once daily CENTRUM TABS One tablet by mouth daily MULTIPLE VITAMINS-MINERALS [id number] Dougie CAT Problems Problem Classification Problem Date Documented Da te Episodic/Chronic Joint disorders and dislocations; trauma-related (13 sources) Other tear of medial meniscus, current injury, right knee, initial encounter; Translations: [Other tear of medial meniscus, current injury, right knee, initial encounter] Onset: 07-26-2016 08-13-2016 Episodic Open wounds of extremities (13 sources) Laceration without foreign body, right thigh, initial encounter; Translations: [Laceration without foreign body, right thigh, initial encounter] Onset: 04-16-2016 04-26-2016 Episodic Other aftercare (11 sources) Surgical follow-up; Translations: [Encounter for other specified surgical aftercare] Onset: 09-21-2016 09-21-2016 Episodic Other non-traumatic joint disorders (13 sources) Knee pain; Translations: [Pain in unspecified knee] Onset: 07-30-2016 07-30-2016 Episodic Sprains and strains (13 sources) Strain of unspecified muscle(s) and tendon(s) at lower leg level, unspecified leg, initial encounter; Translations: [Strain of unspecified muscle(s) and tendon(s) at lower leg level, unspecified leg, initial encounter] Onset: 07-30-2016 07-30-2016 Episodic Results Test Name Value Interpretation Reference Range Facil ity Vital Signs Date Time Vital Sign Value Performing Clinician Facility 08-13-2016 06:31-0400 BMI (Body Mass Index) 41.25 kg/m2 [facility] Work Phone: 08-13-2016 06:31-0400 Body Temperature 96.9 [degF] [facility] Work Phone: 08-13-2016 06:31-0400 Body weight 119.48 kg Candace Westbrook [facility] Work Phone: 08-13-2016 06:31-0400 BP Diastolic 60 mm[Hg] [facility] Work Phone: 08-13-2016 06:31-0400 BP Systolic 110 mm[Hg] [facility] Work Phone: 08-13-2016 06:31-0400 Height 170.18 cm [facility] Work Phone: 08-13-2016 06:31-0400 Pulse (Heart Rate) 73 /min [facility] Work Phone: 08-13-2016 06:31-0400 Pulse Oximetry 98 % [facility] Work Phone: 08-13-2016 06:31-0400 Respiratory Rate 16 /min Kassie [facility] Work Phone: 08-13-2016 06:31-0400 Weight 119.48 kg [facility] Work Phone: 04-26-2016 09:02-0500 Body weight 121.36 kg Candace Westbrook [facility] Work Phone: 04-26-2016 09:02-0500 BSA (Body Surface Area) 2.29 m2 [facility] Work Phone: 04-26-2016 09:02-0500 Height 170.18 cm Kassie [facility] Work Phone: 04-26-2016 09:02-0500 [facility] Work Phone: Procedures Date Procedure Procedure Detail Performing Clinician Start: 10-19-2016 End: 10-19-2016 Alcoholism counseling Candace Westbrook Start: 10-19-2016 End: 10-19-2016 Documentation of current medications Candace Westbrook Plan of Treatment Date Care Activity Detail Author Start: 01-18-2017 End: 01-18-2017 Appointment Appointment [facility] Work Phone: Start: 12-07-2016 End: 12-07-2016 Appointment Appointment [facility] Work Phone: Start: 10-20-2016 End: 10-20-2016 Physical Therapy General Physical Therapy [facility], [address] [place] [address], [address] [facility] Work Phone: Start: 10-19-2016 End: 10-19-2016 Appointment Appointment [facility] Work Phone: Start: 10-19-2016 End: 10-19-2016 Appointment Appointment [facility] Work Phone: Start: 09-21-2016 End: 09-21-2016 Appointment Appointment [facility] Work Phone: Additional Source Comments FOR RECORDS PERTAINING TO PATIENTS WHO ARE OR HAVE BEEN ENROLLED IN A CHEMICAL DEPENDENCY/SUBSTANCEABUSE PROGRAM, SOME INFORMATION MAY BE OMITTED. This clinical summary was aggregated from multiple sources. Caution should be exercised in using it in the provision of clinical care. This summary normalizes information from multiple sources, and as a consequence, information in this document may materially change the coding, format and clinical context of patient data. In addition, data may be omitted in some cases. CLINICAL DECISIONS SHOULD BE BASED ON THE PRIMARY CLINICAL RECORDS. [facility] Work [facility]. provides no warranty or guarantee of the accuracy or completeness of information in this document.
[2023-05-20 18:00] LABS: Absolute Lymphocyte Count 2.41 X10^3/uL (0.83-4.51); Absolute Neutrophil Count 3.4 X10^3/uL (2.0-7.7); Basophil# 0.04 X10^3/uL; Basophil% 0.6 % (0-1); Eosinophil# 0.08 X10^3/uL; Eosinophils% 1.2 % (0-5); Hemoglobin 13.2 g/dL (12.0-15.0); Lymphocyte # 2.41 X10^3/ul (0.83-4.51); Lymphocyte % 37.3 % (19-41); Mean Corp Hgb Conc 33.8 g/dL (32-36); Mean Corpuscular Hgb 29.9 pg (27.0-32.0); Mean Corpuscular Volume 88.2 fL (81-99); Mean Platelet Vol. 11.8 fl (6.2-12.0); Monocyte# 0.51 X10^3/uL; Monocyte% 7.9 % (0-10); NRBC Flagged by Analyzer 0 % (0-5); Neutrophil # 3.41 X10^3/uL (2.7-7.7); Neutrophil % 52.8 % (47-70); Platelet Count 201 K/mm3 (150-450); RBC Distribution Width CV 12.4 % (11.6-14.6); RBC Distribution Width SD 40.1 fl (35.1-43.9); Red Blood Count 4.42 M/mm3 (4.2-5.4); White Blood Count 6.5 K/mm3 (4.4-11.0)
[2023-05-20 18:20] LABS: Hemoglobin A1c 9.7 % (3.8-5.6)
[2023-05-20 18:25] LABS: ALB/GLOB Ratio 0.9 RATIO (0.9-2.4); AST(SGOT) 24 U/L (15-37); Alanine Aminotransfer ALT/SGPT 28 U/L (13-56); Albumin, Serum 3.6 g/dL (3.2-5.0); Alkaline Phosphatase 69 U/L (45-117); Anion Gap 7 (5-15); BUN 15 mg/dL (7-18); BUN/Creat Ratio 22.5 RATIO (10-20); Chloride 103 mmol/L (98-107); Cholesterol 171 mg/dL (200); Creatinine, Serum 0.67 mg/dL (0.55-1.02); EST Glomerular Filtration Rate 101 mL/min (>60); Est Glom Filt Rate - Afr Amer 122 mL/min (>60); Globulin 3.9 g/dL (2.2-4.2); Glucose 192 mg/dL (74-106); High Density Lipoprotein 47 mg/dL; Potassium 3.9 mmol/L (3.5-5.1); Protein, Total 7.5 g/dL (6.4-8.2); Sodium Level 136 mmol/L (136-145); Triglycerides 143 mg/dL; Very Low Density Lipoprotein 29 mg/dL (5-40)
[2023-05-20 18:37] LABS: Microalbumin,Random Urine 38.9 mg/L (NO RANGE EST.); Microalbumin:Creatinine Ratio 44.1 mg/g CRE (<30 mg/g CRE)
== END | disposition home or self-care (01) ==
PROVIDERS: PCP Family Medicine; Referring Provider Family Medicine; Visit Provider Family Medicine
DX: E11.9 Type 2 diabetes mellitus without complications (principal)
CPT/HCPCS: 36415; 80053; 80061; 82043; 82570; 83036; 85025

== ENCOUNTER → 2023-08-25 | Outpatient (CLI) | payer BC, SELFPAY ==
[2023-08-25 15:19] LABS: Absolute Lymphocyte Count 2.46 X10^3/uL (0.83-4.51); Basophil# 0.06 X10^3/uL; Basophil% 0.8 % (0-1); Eosinophil# 0.13 X10^3/uL; Eosinophils% 1.8 % (0-5); Hematocrit 41.5 % (37-47); Hemoglobin 13.9 g/dL (12.0-15.0); Lymphocyte # 2.46 X10^3/ul (0.83-4.51); Lymphocyte % 34.2 % (19-41); Mean Corp Hgb Conc 33.5 g/dL (32-36); Mean Corpuscular Hgb 29.6 pg (27.0-32.0); Mean Corpuscular Volume 88.5 fL (81-99); Mean Platelet Vol. 12.1 fl (6.2-12.0); Monocyte# 0.58 X10^3/uL; Monocyte% 8.1 % (0-10); NRBC Flagged by Analyzer 0 % (0-5); Neutrophil # 3.95 X10^3/uL (2.7-7.7); Platelet Count 224 K/mm3 (150-450); RBC Distribution Width CV 12.1 % (11.6-14.6); RBC Distribution Width SD 38.5 fl (35.1-43.9); Red Blood Count 4.69 M/mm3 (4.2-5.4); White Blood Count 7.2 K/mm3 (4.4-11.0)
[2023-08-25 16:15] LABS: ALB/GLOB Ratio 0.9 RATIO (0.9-2.4); AST(SGOT) 31 U/L (15-37); Alanine Aminotransfer ALT/SGPT 38 U/L (13-56); Albumin, Serum 3.7 g/dL (3.2-5.0); Alkaline Phosphatase 73 U/L (45-117); Anion Gap 6 (5-15); BUN 14 mg/dL (7-18); BUN/Creat Ratio 17.8 RATIO (10-20); Calcium,Total 9.3 mg/dL (8.5-10.1); Chloride 103 mmol/L (98-107); Cholesterol 124 mg/dL (200); Creatinine, Serum 0.79 mg/dL (0.55-1.02); EST Glomerular Filtration Rate 83 mL/min (>60); Est Glom Filt Rate - Afr Amer 101 mL/min (>60); Glucose 176 mg/dL (74-106); High Density Lipoprotein 48 mg/dL; Potassium 4.1 mmol/L (3.5-5.1); Protein, Total 7.7 g/dL (6.4-8.2); Sodium Level 136 mmol/L (136-145); Triglycerides 100 mg/dL; Very Low Density Lipoprotein 20 mg/dL (5-40)
[2023-08-25 17:21] LABS: Vitamin D,25 Hydroxy 44.9 ng/mL
[2023-08-25 17:25] LABS: Microalbumin,Random Urine 26.3 mg/L (NO RANGE EST.); Microalbumin:Creatinine Ratio 24.6 mg/g CRE (<30 mg/g CRE)
[2023-08-25 17:57] LABS: Hemoglobin A1c 9.2 % (3.8-5.6)
== END | disposition home or self-care (01) ==
LOC: MTLAB 11:12
PROVIDERS: PCP Family Medicine; Referring Provider Family Medicine; Visit Provider Family Medicine
DX: E11.9 Type 2 diabetes mellitus without complications (principal); E55.9 Vitamin D deficiency, unspecified
CPT/HCPCS: 36415; 80053; 80061; 82043; 82306; 82570; 83036; 85025

== ENCOUNTER → 2024-03-09 | Outpatient (CLI) | payer BC, SELFPAY ==
[2024-03-09 15:04] LABS: Absolute Lymphocyte Count 2.71 X10^3/uL (0.83-4.51); Absolute Neutrophil Count 3.9 X10^3/uL (2.0-7.7); Basophil# 0.05 X10^3/uL; Basophil% 0.7 % (0-1); Eosinophils% 2.7 % (0-5); Hematocrit 42.6 % (37-47); Hemoglobin 14.3 g/dL (12.0-15.0); Lymphocyte # 2.71 X10^3/ul (0.83-4.51); Lymphocyte % 36.8 % (19-41); Mean Corp Hgb Conc 33.6 g/dL (32-36); Mean Corpuscular Hgb 29.9 pg (27.0-32.0); Mean Corpuscular Volume 89.1 fL (81-99); Mean Platelet Vol. 11.9 fl (6.2-12.0); Monocyte# 0.46 X10^3/uL; Monocyte% 6.3 % (0-10); NRBC Flagged by Analyzer 0 % (0-5); Neutrophil # 3.92 X10^3/uL (2.7-7.7); Neutrophil % 53.2 % (47-70); Platelet Count 206 K/mm3 (150-450); RBC Distribution Width CV 12.4 % (11.6-14.6); RBC Distribution Width SD 40.7 fl (35.1-43.9); Red Blood Count 4.78 M/mm3 (4.2-5.4); White Blood Count 7.4 K/mm3 (4.4-11.0)
[2024-03-09 15:19] LABS: Vitamin D,25 Hydroxy 45.9 ng/mL
[2024-03-09 15:23] LABS: ALB/GLOB Ratio 0.9 RATIO (0.9-2.4); AST(SGOT) 31 U/L (15-37); Alanine Aminotransfer ALT/SGPT 39 U/L (13-56); Albumin, Serum 3.5 g/dL (3.2-5.0); Alkaline Phosphatase 122 U/L (45-117); Anion Gap 9 (5-15); BUN 16 mg/dL (7-18); BUN/Creat Ratio 20.8 RATIO (10-20); Chloride 104 mmol/L (98-107); Cholesterol 185 mg/dL (200); Creatinine, Serum 0.77 mg/dL (0.55-1.02); EST Glomerular Filtration Rate 85 mL/min (>60); Est Glom Filt Rate - Afr Amer 103 mL/min (>60); Glucose 226 mg/dL (74-106); High Density Lipoprotein 43 mg/dL; Potassium 4.1 mmol/L (3.5-5.1); Protein, Total 7.5 g/dL (6.4-8.2); Sodium Level 136 mmol/L (136-145); Triglycerides 317 mg/dL; Very Low Density Lipoprotein 63 mg/dL (5-40)
[2024-03-09 15:24] LABS: Hemoglobin A1c 8.4 % (3.8-5.6)
== END | disposition home or self-care (01) ==
LOC: MTLAB 11:46
PROVIDERS: PCP Family Medicine; Referring Provider Family Medicine; Visit Provider Family Medicine
DX: E11.9 Type 2 diabetes mellitus without complications (principal); E55.9 Vitamin D deficiency, unspecified
CPT/HCPCS: 36415; 80053; 80061; 82306; 83036; 85025

== ENCOUNTER → 2024-06-12 | Outpatient (CLI) | payer BC, SELFPAY ==
[2024-06-12 15:16] LABS: Absolute Lymphocyte Count 2.16 X10^3/uL (0.83-4.51); Absolute Neutrophil Count 4.7 X10^3/uL (2.0-7.7); Basophil# 0.04 X10^3/uL; Basophil% 0.5 % (0-1); Eosinophil# 0.05 X10^3/uL; Eosinophils% 0.7 % (0-5); Hematocrit 40.8 % (37-47); Lymphocyte # 2.16 X10^3/ul (0.83-4.51); Lymphocyte % 29.1 % (19-41); Mean Corp Hgb Conc 34.3 g/dL (32-36); Mean Corpuscular Hgb 30.2 pg (27.0-32.0); Mean Corpuscular Volume 88.1 fL (81-99); Mean Platelet Vol. 11.7 fl (6.2-12.0); Monocyte# 0.44 X10^3/uL; Monocyte% 5.9 % (0-10); NRBC Flagged by Analyzer 0 % (0-5); Neutrophil # 4.69 X10^3/uL (2.7-7.7); Neutrophil % 63.4 % (47-70); Platelet Count 199 K/mm3 (150-450); RBC Distribution Width CV 12.4 % (11.6-14.6); RBC Distribution Width SD 39.9 fl (35.1-43.9); Red Blood Count 4.63 M/mm3 (4.2-5.4); White Blood Count 7.4 K/mm3 (4.4-11.0)
[2024-06-12 15:50] LABS: Vitamin D,25 Hydroxy 67.9 ng/mL
[2024-06-12 15:52] LABS: AST(SGOT) 25 U/L (15-37); Alanine Aminotransfer ALT/SGPT 34 U/L (13-56); Alkaline Phosphatase 61 U/L (45-117); Anion Gap 10 (5-15); BUN 17 mg/dL (7-18); BUN/Creat Ratio 19.6 RATIO (10-20); Calcium,Total 9.4 mg/dL (8.5-10.1); Chloride 102 mmol/L (98-107); Cholesterol 144 mg/dL (200); Creatinine, Serum 0.87 mg/dL (0.55-1.02); EST Glomerular Filtration Rate 74 mL/min (>60); Est Glom Filt Rate - Afr Amer 90 mL/min (>60); Globulin 4.2 g/dL (2.2-4.2); Glucose 194 mg/dL (74-106); High Density Lipoprotein 46 mg/dL; Potassium 4.2 mmol/L (3.5-5.1); Protein, Total 8.2 g/dL (6.4-8.2); Sodium Level 136 mmol/L (136-145); Triglycerides 124 mg/dL; Very Low Density Lipoprotein 25 mg/dL (5-40)
[2024-06-12 15:59] LABS: Microalbumin,Random Urine 19.3 mg/L (NO RANGE EST.); Microalbumin:Creatinine Ratio 34.1 mg/g CRE (<30 mg/g CRE)
[2024-06-12 20:52] LABS: Hemoglobin A1c 8.8 % (3.8-5.6)
== END | disposition home or self-care (01) ==
LOC: MTLAB 11:49
PROVIDERS: PCP Family Medicine; Referring Provider Family Medicine; Visit Provider Family Medicine
DX: E11.8 Type 2 diabetes mellitus with unspecified complications (principal); E55.9 Vitamin D deficiency, unspecified
CPT/HCPCS: 36415; 80053; 80061; 82043; 82306; 82570; 83036; 85025

== ENCOUNTER → 2024-08-06 | Outpatient (CLI) | payer BC, SELFPAY ==
--- NOTE | 2024-08-06 15:01 | ST.MBS ---
Modified Barium Swallow Patient Information Study Date: 08/06/24 Study Time: 13:00 Direct Billable Minutes: 100 Total Minutes procedure & reportin Diagnosis: Dysphagia R13.10 Referring Physician: Farrukh Prajapati Reason for Referral: Assess swallow function, assess risk for aspiration, and determine recommendations for least restrictive diet textures and compensatory strategies to facilitate safe po intake. Medical History: Pt w/ PMH including PNA (>20 years ago) was referred for MBSS to evaluate dysphagia, which onset ~1 month ago. Pt reports difficulty swallowing dry textures w/ sensation of food becoming stuck in her throat. Liquid wash effectively clears sensation of retention. Pt attributes her swallowing difficulty to swollen tonsils. Pt denies odynophagia. Current Diet Ordered: Regular / Thin Dentition: Natural Teeth and Missing Teeth (Getting implants for upper teeth soon) Mental Status: WNL Respiratory Status: Oxygenating on Room Air Penetration-Aspiration Scale Penetration-Aspiration Scale: OBJECTIVE ASSESSMENT OF SWALLOW FUNCTION (QUANTITATIVE ? PER TRIAL): PENETRATION / ASPIRATION SCALE (ABREU): 1 = does not enter airway 2 = enters airway/above vocal folds/ejected 3 = enters airway/above vocal folds/not ejected 4 = enters airway/contacts vocal folds/ejected 5 = enters airway/contacts vocal folds/not ejected 6 = enters airway/below vocal folds/ejected 7 = enters airway/below vocal folds/not ejected despite effort 8 = enters airway/below vocal folds/no effort VIDEOFLOROSCOPIC SCALE SCORE (ABREU): Grade I = aspiration of material that has penetrated into the laryngeal vestibule, intact cough reflex Grade II = aspiration < 10 % of the bolus, intact cough reflex Grade III = aspiration of < 10 % of the bolus, reduced cough reflex or aspiration of > 10 % of the bolus, intact cough reflex Grade IV = aspiration of > 10 % of the bolus, reduced cough reflex Penetration-Aspiration Scale Score Thin Liquid via teaspoon: Result: 1= does not enter airway Thin Liquid via teaspoon Trial 2: Result: 1= does not enter airway Thin Liquid via large single sip: cup: Result: 4= enters airway/contacts vocal folds/ejected [place] Thick Liquid via small single sip: cup: Result: 1= does not enter airway Pudding via teaspoon: Result: 1= does not enter airway Comment: Esophageal screen - Retention in the middle and lower esophagus. Thin Liquid via single sip: straw: Result: 4= enters airway/contacts vocal folds/ejected Comment: Esophageal screen - Liquid wash mostly cleared barium pudding, but continued retention of barium in middle esophagus. 1/2 Cookie: Result: 1= does not enter airway Comment: Esophageal screen - Retention in the lower esophagus. Liquid wash during screen fully cleared retention. Thin Liquid via small single sip: cup: Result: 1= does not enter airway Comment: Barium on vocal folds at the start of this trial, likely laryngeal penetration of previous trial. Cued cough and re-swallow after the swallow = effective in clearing contrast from vocal folds and laryngeal vestibule. Thin Liquid via single sip: straw Effortful swallow: Result: 5= enters airways/contacts vocal folds/not ejected Comment: Large sip. Cued cough and re-swallow after the swallow = effective in clearing contrast from vocal folds and laryngeal vestibule. Barium tablet w/ sequential sips of thin liquids via cup: Result: 8= enters airway/below vocal folds/no effort Comment: Barium tablet unable to be swallowed. SILENT aspiration of thin liquid wash. Cued cough and re-swallow after the swallow = effective in clearing contrast from vocal folds and laryngeal vestibule; however, trace contrast remained in the trachea. Barium tablet w/ barium pudding: Result: 1= does not enter airway Comment: Esophageal screen - Retention of tablet in middle esophagus. Thin Liquid via single sip: straw Trial 2: Result: 1= does not enter airway Comment: Esophageal screen - Continued retention of tablet in middle esophagus despite liquid wash Oral Phase Labial Seal: Interlabial escape, no progression to anterior lip Tongue Control During Bolus Hold: Posterior escape of greater than half of bolus Bolus Preparation/Mastication: Timely and efficient chewing and mashing Bolus Transport/Lingual Motion: Delayed initiation of tongue motion Oral Residue: Trace residue lining oral structures Pharyngeal Phase Initiation of Pharyngeal Swallow: Bolus head in pyriforms Soft Palate Elevation: Trace column of contrast/air between soft palate and pharyngeal wall Laryngeal Elevation: Partial superior movement thyroid cart/partial apprx aryt-epig petiole Anterior Hyoid Excursion: Partial anterior movement Epiglottic Movement: Complete inversion Laryngeal Vestibule Closure at Height of Swallow: Incomplete; narrow column of air/contrast in laryngeal vestibule Pharyngeal Stripping Wave: Present - complete Pharyngoesophageal Segment Opening: Complete distension and complete duration; no obstruction of flow Tongue Base Retraction: Narrow column of contrast between tongue base & post. pharyngeal wall Pharyngeal Residue: Trace residue within or on pharyngeal structures Esophageal Phase Esophageal Clearance: Esophageal retention Diagnosis/Impression Diagnosis: Mild-moderate oropharyngeal dysphagia R13.12; Esophageal dysphagia R13.14 Impression: The oral phase is primarily marked by... -Decreased bolus control w/ posterior loss of >1/2 the bolus to the pharynx prior to swallow onset. -Delayed tongue motion for A-P transport. The pharyngeal phase is primarily marked by... -Delayed swallow onset. -Decreased airway closure due to decreased laryngeal elevation and anterior hyoid excursion w/ SILENT aspiration of sequential sips of thin liquids. The esophageal phase is primarily marked by... -Retention of pudding in the middle and lower esophagus, which mostly cleared w/ liquid wash. -Retention of cookie in the lower esophagus, which fully cleared w/ liquid wash. -Retention of barium tablet in the middle esophagus, which did not clear w/ liquid wash. Recommendations Diet: Regular Textures (Moisten dry textures) and Thin Liquids Comment: Meds in applesauce, would consider crushing pills as able due to esophageal retention. Compensatory Strategies: Small Bites, Small Sips (One at a time), Slow Rate, Alternate bites/solids and sips/liquids (Take a sip after every 1-2 bites), Sitting upright and Remain sitting upright for 30 minutes after PO intake Recommend Repeat Modified Barium Swallow: Yes (4-8 weeks after implementation of oropharyngeal exercise program to re-assess aspiration risk) Need for Skilled Speech Therapy Services: Yes Recommended Referrals: GI Consult (Pt is not appropriate for participation in barium esophagram due to aspiration risk. [employer] called Dr. Prajapati's office to make them aware that her esophagram has been cancelled.) Education Completed: 1. Described result of evaluation., 2. Pt understands evaluation & agrees with goals and treatment plan. and 7. Pt requires further education on strategies & risks. Status Active ST Patient: Active Contact Information [facility] Speech Therapy:: Treva Cabezas M.A. [facility] [facility]? Speech-Language Pathologist?? [facility] [address] [place] [address]? [email or web address]?? [phone]
== END | disposition home or self-care (01) ==
PROVIDERS: PCP Family Medicine; Referring Provider Family Medicine; Visit Provider Family Medicine
DX: R13.10 Dysphagia, unspecified (principal)
CPT/HCPCS: 74230; 92611

== ENCOUNTER 2024-11-14 11:28 | Outpatient (CLI) | payer BC, SELFPAY ==
[2024-11-14 15:47] LABS: Hematocrit 39.0 % (37-47); Hemoglobin 13.4 g/dL (12.0-15.0); Immature Granulocytes Count 0.020 X10^3/uL (0.0-0.0); Mean Corp Hgb Conc 34.4 g/dL (32-36); Mean Corpuscular Volume 87.8 fL (81-99); Mean Platelet Vol. 12.0 fl (6.2-12.0); NRBC Flagged by Analyzer 0 % (0-5); Platelet Count 194 K/mm3 (150-450); RBC Distribution Width CV 12.9 % (11.6-14.6); RBC Distribution Width SD 41.3 fl (35.1-43.9); Red Blood Count 4.44 M/mm3 (4.2-5.4); White Blood Count 6.5 K/mm3 (4.4-11.0)
[2024-11-14 16:15] LABS: Creatinine, Urine (random) 42.20 mg/dL (28.00-217.00); Microalbumin,Random Urine < 12.0 mg/L (NO RANGE EST.)
[2024-11-14 16:41] LABS: AST(SGOT) 32 U/L (<=31); Alanine Aminotransfer ALT/SGPT 36 U/L (<=34); Albumin, Serum 4.1 g/dL (3.5-5.0); Alkaline Phosphatase 79 U/L (35-104); Anion Gap 15 (5-15); BUN 11 mg/dL (4-19); BUN/Creat Ratio 17.9 RATIO (10-20); Calcium,Total 9.2 mg/dL (7.6-11.0); Carbon Dioxide 19.0 mmol/L (21.0-32.0); Chloride 104 mmol/L (98-108); Cholesterol 145 mg/dL (<=200); Globulin 3.1 g/dL (2.2-4.2); Glucose 222 mg/dL (70-99); Low Density Lipoprotein Calc. 77 mg/dL; Potassium 4.0 mmol/L (3.3-5.1); Triglycerides 137 mg/dL; Very Low Density Lipoprotein 27 mg/dL (5-40); Vitamin D,25 Hydroxy 45.2 ng/mL (30-100); cholesterol:hdl ratio screen 3.55
== END 2024-11-14 23:59 | disposition home or self-care (01) ==
LOC: MTLAB 11:29
PROVIDERS: PCP Family Medicine; Referring Provider Family Medicine; Visit Provider Family Medicine
DX: E11.8 Type 2 diabetes mellitus with unspecified complications (principal); E55.9 Vitamin D deficiency, unspecified
CPT/HCPCS: 36415; 80053; 80061; 82043; 82306; 82570; 83036; 85025

== ENCOUNTER → 2025-01-24 | Outpatient (CLI) | payer BC, SELFPAY ==
--- NOTE | 2025-01-24 13:40 | RAD_ITS ---
PROCEDURE: KNEE 4 OR MORE VIEWS 01/24/2025 REASON FOR EXAM: PAIN, EVAL FOR OA, HAS SETH CYST TECHNIQUE: Procedure Code: RADKN Modality: DX Procedure: KNEE 4 OR MORE VIEWS Laterality: Left COMPARISON: None FINDINGS: LEFT KNEE: There is no evidence of fracture or dislocation. There is mild arthritis of the patellofemoral joint. 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 There is severe arthritis of the medial joint space compartment of the knee. There is mild arthritis of the lateral joint space compartment of the knee. There is no knee joint effusion. The periarticular soft tissues are normal. RAD/Knee 4 or More Views IMPRESSION: 1. There is severe arthritis of the medial joint space compartment of the knee . 2. Mild arthritis of the patellofemoral joint and the lateral joint space comp artment of the knee. Reading Location: [place] [id number]
== END | disposition home or self-care (01) ==
LOC: MTRAD 13:39
PROVIDERS: PCP Family Medicine; Referring Provider Family Medicine; Visit Provider Family Medicine
DX: M25.562 Pain in left knee (principal)
CPT/HCPCS: 73564

== ENCOUNTER → 2025-04-30 | Outpatient (CLI) | payer BC, SELFPAY ==
[2025-04-30 17:50] LABS: Hematocrit 39.6 % (37-47); Hemoglobin 13.7 g/dL (12.0-15.0); Immature Granulocytes Count 0.010 X10^3/uL (0.0-0.0); Mean Corp Hgb Conc 34.6 g/dL (32-36); Mean Corpuscular Volume 87.6 fL (81-99); Mean Platelet Vol. 11.8 fl (6.2-12.0); NRBC Flagged by Analyzer 0 % (0-5); Platelet Count 218 K/mm3 (150-450); RBC Distribution Width CV 12.1 % (11.6-14.6); RBC Distribution Width SD 39.2 fl (35.1-43.9); Red Blood Count 4.52 M/mm3 (4.2-5.4); White Blood Count 6.2 K/mm3 (4.4-11.0)
[2025-04-30 18:02] LABS: Creatinine, Urine (random) 48.80 mg/dL (28.00-217.00); Microalbumin,Random Urine 13.7 mg/L (<20 mg/L); Protein, Urine (Random) < 6.0 mg/dL (0.0-12.0); Protein:Creat Ratio UNABLE TO CALCULATE mg/g CRE (0-200)
[2025-04-30 18:27] LABS: AST(SGOT) 31 U/L (<=31); Alanine Aminotransfer ALT/SGPT 39 U/L (<=34); Albumin, Serum 4.5 g/dL (3.5-5.0); Alkaline Phosphatase 99 U/L (35-104); Anion Gap 17 (5-15); BUN 14 mg/dL (4-19); BUN/Creat Ratio 15.9 RATIO (10-20); Calcium,Total 9.6 mg/dL (7.6-11.0); Carbon Dioxide 20.9 mmol/L (21.0-32.0); Chloride 98 mmol/L (98-108); Cholesterol 166 mg/dL (<=200); Globulin 3.2 g/dL (2.2-4.2); Glucose 231 mg/dL (70-99); Low Density Lipoprotein Calc. 89 mg/dL; Potassium 4.0 mmol/L (3.3-5.1); Triglycerides 253 mg/dL; Very Low Density Lipoprotein 51 mg/dL (5-40); Vitamin D,25 Hydroxy 51.9 ng/mL (30-100); cholesterol:hdl ratio screen 4.78
== END | disposition home or self-care (01) ==
LOC: MTLAB 15:49
PROVIDERS: PCP Family Medicine; Referring Provider Family Medicine; Visit Provider Family Medicine
DX: E11.8 Type 2 diabetes mellitus with unspecified complications (principal)
CPT/HCPCS: 36415; 80053; 80061; 82043; 82306; 82570; 83036; 84156; 85025